=== PATIENT | female | born 1975 ===

== ENCOUNTER 2018-09-09 07:30 | Inpatient (IN) | payer OTHER ==
[2016-12-09 19:21] VITALS: BMI 30.2
[2018-09-18] MEDS ORDERED: ceFAZolin IV 1 gm in Dextrose 2 GM/100 ML BAG IVPB ONE ×2 (07:24→16:04)
[2018-09-18] MEDS ORDERED: Propofol 10 mg/ml Inj (20 ML) ONE (07:48)
[2018-09-18] MEDS ORDERED: Midazolam 2 MG/2 ML VIAL ONE (07:49)
[2018-09-18] MEDS ORDERED: Bacitracin 150,000 UNIT in Sodium Chloride 0.9% Irrig 3,000 ML IR SCH (10:00)
--- NOTE | 2018-09-18 11:13 | RAD ---
Date of service: 09/18/2018 PROCEDURE: Right Knee Radiographs. HISTORY: ALIGNMENT COMPARISON: None. FINDINGS: BONES: No acute fracture. JOINTS: Mild tricompartmental narrowing with minimal degenerative spurring. JOINT EFFUSION: None. OTHER FINDINGS: None. IMPRESSION: No demonstrated fracture or dislocation. Mild degenerative changes.
[2018-09-18] MEDS ORDERED: Neostigmine Methylsulfate 3mg/3ml Syringe IV ONE (17:55)
[2018-09-18] MEDS ORDERED: Rocuronium 10 mg/ml (5 ml) ONE (17:55)
[2018-09-18] MEDS ORDERED: Labetalol 25mg/5ml Syringe ONE (18:28)
[2018-09-18] MEDS ORDERED: EPINEPHrine 1 mg/ml (1:1000) Inj ONE (20:44)
[2018-09-18] MEDS: HYDROmorphone 0.5 mg/0.5 ml ISec IVP PRN ×6 (21:29→23:38)
[2018-09-18 21:52] LABS: HEPATITIS B SURFACE AG Negative (NEGATIVE)
[2018-09-18 21:58] LABS: HEPATITIS A IGM NEGATIVE (NEGATIVE); HEPATITIS B CORE AB NEGATIVE (NEGATIVE)
[2018-09-18 22:03] LABS: HEMOGLOBIN 10.6 g/dL (11.0-16.0); MEAN CELL VOLUME 90.9 fL (81.0-99.0); MEAN CORPUSCULAR HEMOGLOBIN 30.2 pg (27.0-31.0); MEAN CORPUSCULAR HGB CONC 33.3 g/dL (33.0-37.0); MEAN PLATELET VOLUME 7.3 fL (7.2-11.7); RBC 3.52 Mil/uL (3.80-5.20); RED CELL DISTRIBUTION WIDTH 13.4 % (11.5-14.5)
[2018-09-18 22:07] LABS: WHITE BLOOD COUNT 15.3 K/uL (4.8-10.8)
[2018-09-18 22:10] LABS: HEPATITIS C ANTIBODY NEGATIVE (NEGATIVE)
[2018-09-18] MEDS ORDERED: Iodixanol 320 mg/ml 150 ml Bottle IV ONE (22:24)
[2018-09-18 23:42] LABS: ALB/GLOB RATIO 1.2 (1.0-2.1); ALBUMIN 3.4 g/dL (3.5-5.0); ALT/SGPT 42 U/L (9-52); AST/SGOT 43 U/L (14-36); BLOOD UREA NITROGEN 5 mg/dL (7-17); CALCIUM 8.1 mg/dl (8.6-10.4); GFR NON-AFRICAN AMERICAN > 60
--- NOTE | 2018-09-18 23:55 | PCM.SURG1 ---
Surgeon's Initial Post Op Note - Surgeon's Notes Surgeon: Christopher Cintron MD Playground Director: Saji Garrison PA-C Type of Anesthesia: General Endo, Block [facility] Pre-Operative Diagnosis: R knee #1 Lateral meniscus deficiency. #2 Lateral Femoral Condyle cartilage loss. #3 ACL tear/instability. #4 New medial meniscal tear Operative Findings: R knee #1 Lateral meniscus deficiency. #2 Lateral Femoral Condyle cartilage loss (weight bearing zone crade 4 chondral loss measuring [id number]). #3 ACL tear/instability (high grade partial tear with mucinoid changes, EUA=grade 3 instability). #4 New medial meniscal tear (white-red zone horizontal tear, repairable). #5 3 compartment synovitis. #6 medial and lateral plica bands/ adhesions. #7 s/p R knee arthroscopic medial meniscal repair, partial lateral menisectomy, chondroplasty & microfracture [facility] 10/08/2017 Post-Operative Diagnosis: R knee #1 Lateral meniscus deficiency. #2 Lateral Femoral Condyle cartilage loss (weight bearing zone crade 4 chondral loss measuring [id number]). #3 ACL tear/instability (high grade partial tear with mucinoid changes, EUA=grade 3 instability). #4 New medial meniscal tear (white- red zone horizontal tear, repairable). #5 3 compartment synovitis. #6 medial and lateral plica bands/ adhesions. #7 s/p R knee arthroscopic medial meniscal repair, partial lateral menisectomy, chondroplasty & microfracture [facility] 10/08/2017 Operation Performed: R knee #1 Arthroscopic all inside medial meniscal repair. #2 Arthroscopic extensive synovectomy (3 compartment synovectomy/ resection p lica/ lysis of adhesion). #3 Arthroscopic assisted Lateral meniscus allograft transplantation. #4 Arthroscopic assisted ACL reconstructio w/ allograft Hamstring. #5 Open Osteochondral Allograft Transplantation LFC, Biological Unicondylar Resurfacing. #6 bone grafting to LM transplant and LFC osteochondral allograft. #7 Arthroscopic intra-articular PRP injection Specimen/Specimens Removed: specimen= none. complications= none. Tourniquet time= 120min at 300mmHg, then deflated for 60min, reinflated for 90min. Implants= Arthrex: tightrope button and washery boss with suture for femoral sided fixation ACL, [id number] length biocomposite delta screw for tibial sided ACL fixation, [id number] length biocomposite interference screw as stabilization backup for lateral meniscus graft, SemiT allograft x2 for ACL reconstruction, Right knee Lateral condyle fresh allograft for Bio Uni, Right knee Lateral meniscus frozen allograft for LM transplant. Linvatec/Conmed: Sequent meniscal repair system, all - inside, 10 implants for MMR, 19 implants for LM allograft fixation. Inside-Out zone specific needles, 10 used for LM fixation Estimated Blood Loss: EBL {In ML}: 100 Blood Products Given: N/A Drains Used: No Drains Post-Op Condition: Good Date of Surgery/Procedure: 09/18/18 Time of Surgery/Procedure: 19:00
[2018-09-19] MEDS ORDERED: Iohexol 240 200 ML ONE ×2 (00:08→00:59)
[2018-09-19] MEDS ORDERED: HEPARIN-NS 5,000 UNITS/500 ML 5,000 UNIT/500 ML BAG IV ONE ×3 (00:08→07:06)
[2018-09-19] MEDS ORDERED: Midazolam 2 MG/2 ML VIAL ONE ×3 (00:30→08:17)
[2018-09-19] MEDS ORDERED: Propofol 10 mg/ml Inj (20 ML) ONE ×2 (00:30→08:49)
[2018-09-19] MEDS ORDERED: ceFAZolin IV 1 gm in Dextrose 1 GM/50 ML BAG IVPB ONE ×2 (00:59→06:48)
[2018-09-19] MEDS: Albumin Human 25% (12.5 gm/50 ml) IV SCH ×2 (04:55→05:00)
--- NOTE | 2018-09-19 05:38 | CP.PCM.PN ---
Subjective - Date & Time of Evaluation Date of Evaluation: 09/18/18 Time of Evaluation: 21:30 - Subjective Subjective: 42 yof brought to [facility] after long and extensive knee surgery. Intraop recommendation was made by me that the patient would be admitted for observation due to a lengthy and complex surgery. Dr Vince Hernandez stated that he had a conversation with the patient preop and that she would rather go home post surgery. Upon arrival to [facility] patient complained of knee pain was given dilaudid. Patient also complained of right foot pain. When asked to move toes on right foot she could not move. Dr Vince Hernandez was by the bedside evaluated the patient f or foot pain, numbness, inability to move the toes. He did the doppler on right dorsalis pedis, pulse not detected. On touch foot felt colder then other one. Patient was explained that at this point block was not recommended because of the possibility of nerve and/or vascular compromise and that block can mask the symptoms and delay the diagnosis. was by the bedside and he was also explained of the same. Patient and were reassured that even though I will not do the block I will take care of patient's pain. Multiple doses of Dilaudid were given and Dilaudid CHIEF TRANSFER AND PUMPHOUSE OPERATOR was ordered immediately. Dr Vince Hernandez recommended foot to be wrapped in lindsay hugger to treat possible vasospasm. In short trial of lindsay hugger there wasn't any improvement. Repetitive dopplers were being done as well. I made multiple phone calls in short amount of time to Dr Vince Hernandez to make him aware of the patient's condition not improving and also to admit the patient for close monitoring of neurovascular function. Since time was of the essence I called Dr Servin- vascular surgeon to evaluate the patient and ordered the CT angio of the leg stat as per Dr Servin's recommendation. Dr iVnce Romeo was made aware of vascular consult and study ordered. Dr Servin arrived shortly , evaluated the patient, reviewed the CT angio and recommended emergency surgery. He talked to the about the need of emerg surgery. He called Dr Vince Hernandez via phone to inform him of the result findings and need of the emergency surgery. Around the same time that Dr Servin was called the hospitalist under who the patient was admitted Dr Hooks was called. Doppler was done again, dorsalis pedis was absent, but there was a doppler signal from right tibialis posterior, the color of the foot was not changed, but still cold. Objective - Vital Signs/Intake and Output Vital Signs (last 24 hours): Temp Pulse Resp BP Pulse Ox 985 F H 116 H 12 184/62 H 91 L 09/18/18 23:25 09/18/18 23:25 09/18/18 23:25 09/18/18 23:25 09/18/18 23:25 Intake and Output: 09/18/18 09/19/18 18:59 06:59 Intake Total 3200 4025 Balance 3200 4025 - Medications Medications: Current Medications Albumin Human (Albumin Human 25% (12.5 Gm/50 Ml)) 12.5 gm IV Q1H MOSES Stop: 09/19/18 06:00 Last Admin: 09/19/18 05:00 Dose: 12.5 gm Enoxaparin Sodium (Lovenox) 40 mg SC DAILY MOSES Hydromorphone/Sodium Chloride (Dilaudid Insurance Account Manager) 6 mg IV Q4H PRN; Protocol PRN Reason: Pain, moderate (4-7) Sodium Chloride (Sodium Chloride 0.9%) 1,000 mls @ 100 mls/hr IV .Q10H MOSES Heparin Sodium/Sodium Chloride (Heparin 33297 Units/250ml 1/2 Normal Saline) 25,000 units in 250 mls @ 12.247 mls/hr IV .[id number] PRN; Protocol PRN Reason: PROTOCOL - Labs Labs: 09/18/18 22:00 09/18/18 23:25
[2018-09-19] MEDS ORDERED: Papaverine Hydrochloride 30 mg/ml (2ml) ONE (05:42)
--- NOTE | 2018-09-19 06:44 | CP.PCM.HP ---
<Charito Nicole - Last Filed: 09/19/18 06:57> History of Present Illness - History of Present Illness History of Present Illness: CC " right foot pain" HPI: Patient is a 42 year old female with history of nephrolithiasis and ovarian cysts who presented status post right knee arthoscopic medial menisceal repair, extensive synvovectomy, arthoscopic assisted lateral meniscus allograft transplantation, arthoscopic assisted ACL reconstruction with allograft Hamstring, open osteochondral Allograft Transplantation LFC, Biological Unicondylar Resurfacing and bone grafting to LM transplant and LFC osteochondral allograft, arthroscopic intra-articular PRP injection with Dr. Baez on 09/18/18. Post-operatively while in the PACU, patient complained of pain in her right knee and right foot. Patient was given Dilaudid at that time, however continued to complain of severe right foot pain. Patient states she was unable to feel the bottom of her right foot and could not move her toes on her right foot. Emergent CT angio of leg ordered which revealed thrombus of the right popliteal artery. Vascular surgery determined patient needed emergent thrombectomy. History limited since patient had to return to OR emergently and was in severe pain. Unable to obtain ROS since patient had to return to OR. As per prior notes: PMH: nephrolithiasis and ovarian cysts PSH: right knee meniscus x2, L knee ACL x3, R knee ACL, C section Social hx: smokes 7 cigarettes daily, social etoh. denies drug use. family hx: mom had DM, [place], CABG, CVA. Dad had DM. allergies: Tylenol (hives,), Hydrocodone (hives), oxydone (hives) Home meds: none Present on Admission - Present on Admission Any Indicators Present on Admission: No Past Patient History - Infectious Disease Hx of Infectious Diseases: None - Past Medical History & Family History Past Medical History?: Yes - Past Social History Smoking Status: Smoker Currrent Status Unknown - CARDIAC Hx Cardiac Disorders: No Hx Heart Murmur: Yes (ASYMPOTOMATIC) - PULMONARY Hx Respiratory Disorders: No - NEUROLOGICAL Hx Neurological Disorder: No - HEENT Hx HEENT Problems: No - RENAL Hx Chronic Kidney Disease: No Hx Kidney Stones: Yes - ENDOCRINE/METABOLIC Hx Endocrine Disorders: No - HEMATOLOGICAL/ONCOLOGICAL Hx Blood Disorders: No Hx Blood Transfusions: No Hx Blood Transfusion Reaction: No Hx Bruising: Yes - INTEGUMENTARY Hx Dermatological Problems: No - MUSCULOSKELETAL/RHEUMATOLOGICAL Hx Musculoskeletal Disorders: Yes Hx Falls: No Other/Comment: Right and Left Meiscal tear. - GASTROINTESTINAL Hx Gastrointestinal Disorders: No - GENITOURINARY/GYNECOLOGICAL Hx Genitourinary Disorders: Yes Hx Hematuria: Yes Hx Urinary Tract Infection: Yes Other/Comment: Ovarian cyst - PSYCHIATRIC Hx Psychophysiologic Disorder: Yes Hx Anxiety: Yes Hx Depression: Yes Hx Substance Use: No - SURGICAL HISTORY Hx Surgeries: Yes Hx Arthroscopy: Yes (2 RIGHT KNEE 3 LEFT KNEE) Hx Section: Yes Hx Herniorrhaphy: Yes (ABD) Other/Comment: Ovarian cystectomy, Repair right and left knee meniscal tear. - ANESTHESIA Hx Anesthesia: Yes Hx Anesthesia Reactions: No Hx Malignant Hyperthermia: No Has any member of the family had a problem w/ anesthesia?: No Meds Allergies/Adverse Reactions: Allergies Allergy/AdvReac Type Severity Reaction Status Date / Time hydrocodone bitartrate Allergy RASH Verified 12/09/16 19:30 [From Vicodin] oxycodone HCl [From Percocet] Allergy RASH Verified 12/09/16 19:30 Physical Exam - Constitutional Appears: In Acute Distress - Head Exam Head Exam: ATRAUMATIC, NORMOCEPHALIC - Eye Exam Eye Exam: EOMI - ENT Exam ENT Exam: Mucous Membranes Moist - Neck Exam Neck exam: Positive for: Full Rom. Negative for: Tenderness - Respiratory Exam Respiratory Exam: NORMAL BREATHING PATTERN - Cardiovascular Exam Cardiovascular Exam: REGULAR RHYTHM, +S1, +S2 - GI/Abdominal Exam GI & Abdominal Exam: Normal Bowel Sounds, Soft. absent: Distended, Firm, Guarding, Hernia, Tenderness - Extremities Exam Additional comments: Right lower extremity immobilized after extensive knee surgery Right foot: Cold to touch. Unable to palpate DP pulse. PT pulse present with doppler. Unable to move right toes. Decreased sensation of right foot. Tenderness of distal right foot. Left foot: Strong DP pulse. Warm to touch. Able to move toes without issues. Sensation intact of left foot. Nontender. - Neurological Exam Neurological exam: Alert, Oriented x3 Results - Vital Signs Recent Vital Signs: Last Vital Signs Temp 985 F H 09/18/18 23:25 Pulse 116 H 09/18/18 23:25 Resp 12 09/18/18 23:25 BP 184/62 H 09/18/18 23:25 Pulse Ox 91 L 09/18/18 23:25 - Labs Result Diagrams: 09/18/18 22:00 09/18/18 23:25 Labs: Laboratory Results - last 24 hr 09/18/18 09/18/18 09/18/18 13:32 15:49 18:48 WBC RBC Hgb Hct MCV MCH MCHC RDW Plt Count MPV Sodium Potassium Chloride Carbon Dioxide Anion Gap BUN Creatinine Est GFR ( Amer) Est GFR (Non-Af Amer) POC Glucose (mg/dL) 107 99 145 H Random Glucose Lactic Acid Calcium Total Bilirubin AST ALT Alkaline Phosphatase Total Protein Albumin Globulin Albumin/Globulin Ratio RPR Hepatitis A IgM Ab Hep Bs Antigen Hep Bs Antibody Hep B Core IgM Ab Hepatitis C Antibody Blood Type Blood Type Confirm Antibody Screen 09/18/18 09/18/18 09/18/18 21:02 21:02 21:02 WBC RBC Hgb Hct MCV MCH MCHC RDW Plt Count MPV Sodium Potassium Chloride Carbon Dioxide Anion Gap BUN Creatinine Est GFR ( Amer) Est GFR (Non-Af Amer) POC Glucose (mg/dL) Random Glucose Lactic Acid Calcium Total Bilirubin AST ALT Alkaline Phosphatase Total Protein Albumin Globulin Albumin/Globulin Ratio RPR Nonreactive Hepatitis A IgM Ab Negative Hep Bs Antigen Negative Hep Bs Antibody Negative Hep B Core IgM Ab Negative Hepatitis C Antibody Negative Blood Type Blood Type Confirm Antibody Screen 09/18/18 09/18/18 09/18/18 22:00 23:25 23:44 WBC 15.3 H D RBC 3.52 L Hgb 10.6 L D Hct 32.0 L MCV 90.9 D MCH 30.2 MCHC 33.3 RDW 13.4 Plt Count 408 H MPV 7.3 Sodium 132 Potassium 4.0 Chloride 100 Carbon Dioxide 22 Anion Gap 15 BUN 5 L Creatinine 0.6 L Est GFR ( Amer) > 60 Est GFR (Non-Af Amer) > 60 POC Glucose (mg/dL) Random Glucose 185 H Lactic Acid 1.8 Calcium 8.1 L Total Bilirubin 1.3 AST 43 H ALT 42 Alkaline Phosphatase 70 Total Protein 6.3 Albumin 3.4 L Globulin 2.8 Albumin/Globulin Ratio 1.2 RPR Hepatitis A IgM Ab Hep Bs Antigen Hep Bs Antibody Hep B Core IgM Ab Hepatitis C Antibody Blood Type Blood Type Confirm Antibody Screen 09/19/18 09/19/18 09/19/18 00:23 02:49 04:06 WBC RBC Hgb Hct MCV MCH MCHC RDW Plt Count MPV Sodium Potassium Chloride Carbon Dioxide Anion Gap BUN Creatinine Est GFR ( Amer) Est GFR (Non-Af Amer) POC Glucose (mg/dL) 168 H Random Glucose Lactic Acid Calcium Total Bilirubin AST ALT Alkaline Phosphatase Total Protein Albumin Globulin Albumin/Globulin Ratio RPR Hepatitis A IgM Ab Hep Bs Antigen Hep Bs Antibody Hep B Core IgM Ab Hepatitis C Antibody Blood Type A POSITIVE Blood Type Confirm A POSITIVE Antibody Screen Negative Assessment & Plan - Assessment and Plan (Free Text) Plan: Assessment 42 year old female with history of nephrolithiasis and ovarian cysts who presented for right knee menisceal and ACL surgery with Dr. Baez. Post- operatively, patient developed severe right foot pain with decreased sensation, lack of pulse, and inability to move toes. Plan Severe foot pain, status post right knee surgery Right popliteal artery thrombus, with thrombectomy Ortho Dr. Baez on case Vascular Dr. Servin consulted after patient complained of severe pain in right foot, with lack of pulse, decreased sensation and inability to move toes CT angio ordered which revealed thrombus of right popliteal artery. Patient was taken back to OR for emergency thrombectomy with Dr. Servin f/u CBC, CMP, CPK, lactate Case discussed with Dr. Neva Nicole, PGY1 <Phong Hooks P - Last Filed: 09/20/18 06:50> Results - Vital Signs Recent Vital Signs: Last Vital Signs Temp 99.8 F H 09/20/18 04:00 Pulse 118 H 09/20/18 06:03 Resp 20 09/20/18 06:03 BP 138/67 09/20/18 06:03 Pulse Ox 99 09/20/18 06:03 - Labs Result Diagrams: 09/20/18 06:28 09/19/18 18:37 Labs: Laboratory Results - last 24 hr 09/19/18 09/19/18 09/19/18 00:23 07:58 09:51 WBC RBC Hgb Hct MCV MCH MCHC RDW Plt Count MPV Neut % (Auto) Lymph % (Auto) Mobile % (Auto) Eos % (Auto) Baso % (Auto) Neut # (Auto) Lymph # (Auto) Mobile # (Auto) Eos # (Auto) Baso # (Auto) PT INR APTT Puncture Site Lr pCO2 33 L pO2 131 H HCO3 23.2 ABG pH 7.42 ABG Total CO2 22.4 ABG O2 Saturation 99.4 H ABG Base Excess -2.3 L Tavo Test Pos ABG Potassium 3.5 L A-a O2 Difference 184.0 Respiratory Index 1.4 Sodium 137.0 Chloride 112.0 H Glucose 211 H Lactate 2.3 H Vent Mode A/c pc Mechanical Rate 18 FiO2 50.0 PEEP 5 Potassium Carbon Dioxide Anion Gap BUN Creatinine Est GFR ( Amer) Est GFR (Non-Af Amer) POC Glucose (mg/dL) Random Glucose Lactic Acid Calcium Phosphorus Magnesium Total Bilirubin AST ALT Alkaline Phosphatase Total Creatine Kinase CK-MB (Mass) Troponin I Total Protein Albumin Globulin Albumin/Globulin Ratio Arterial Blood Potassium 3.5 L Urine Color Urine Clarity Urine pH Ur Specific [place] Urine Protein Urine Glucose (UA) Urine Ketones Urine Blood Urine Nitrate Urine Bilirubin Urine Urobilinogen Ur Leukocyte Esterase Urine WBC (Auto) Urine RBC (Auto) Ur Squamous Epith Cells Urine Opiates Screen Urine Methadone Screen Ur Barbiturates Screen Ur Phencyclidine Scrn Ur Amphetamines Screen U Benzodiazepines Scrn U Oth Cocaine Metabols U Cannabinoids Screen HIV 1&2 Antibody Screen Negative Blood Type A POSITIVE Antibody Screen Negative 09/19/18 09/19/18 09/19/18 11:48 13:11 13:11 WBC RBC Hgb Hct MCV MCH MCHC RDW Plt Count MPV Neut % (Auto) Lymph % (Auto) Mobile % (Auto) Eos % (Auto) Baso % (Auto) Neut # (Auto) Lymph # (Auto) Mobile # (Auto) Eos # (Auto) Baso # (Auto) PT 15.2 H INR 1.4 APTT 29 Puncture Site pCO2 pO2 HCO3 ABG pH ABG Total CO2 ABG O2 Saturation ABG Base Excess Tavo Test ABG Potassium A-a O2 Difference Respiratory Index Sodium 136 Chloride 107 Glucose Lactate Vent Mode Mechanical Rate FiO2 PEEP Potassium 3.8 Carbon Dioxide 25 Anion Gap 8 L BUN 3 L Creatinine 0.6 L Est GFR ( Amer) > 60 Est GFR (Non-Af Amer) > 60 POC Glucose (mg/dL) 228 H Random Glucose 200 H Lactic Acid Calcium 6.9 L Phosphorus Magnesium Total Bilirubin 1.5 H AST 76 H D ALT 42 Alkaline Phosphatase 33 L D Total Creatine Kinase 5086 H CK-MB (Mass) 34.2 H Troponin I < 0.0120 Total Protein 4.0 L Albumin 2.2 L D Globulin 1.9 L Albumin/Globulin Ratio 1.2 Arterial Blood Potassium Urine Color Urine Clarity Urine pH Ur Specific [place] Urine Protein Urine Glucose (UA) Urine Ketones Urine Blood Urine Nitrate Urine Bilirubin Urine Urobilinogen Ur Leukocyte Esterase Urine WBC (Auto) Urine RBC (Auto) Ur Squamous Epith Cells Urine Opiates Screen Urine Methadone Screen Ur Barbiturates Screen Ur Phencyclidine Scrn Ur Amphetamines Screen U Benzodiazepines Scrn U Oth Cocaine Metabols U Cannabinoids Screen HIV 1&2 Antibody Screen Blood Type Antibody Screen 09/19/18 09/19/18 09/19/18 14:00 14:12 16:07 WBC RBC Hgb Hct MCV MCH MCHC RDW Plt Count MPV Neut % (Auto) Lymph % (Auto) Mobile % (Auto) Eos % (Auto) Baso % (Auto) Neut # (Auto) Lymph # (Auto) Mobile # (Auto) Eos # (Auto) Baso # (Auto) PT INR APTT Puncture Site pCO2 pO2 HCO3 ABG pH ABG Total CO2 ABG O2 Saturation ABG Base Excess Tavo Test ABG Potassium A-a O2 Difference Respiratory Index Sodium Chloride Glucose Lactate Vent Mode Mechanical Rate FiO2 PEEP Potassium Carbon Dioxide Anion Gap BUN Creatinine Est GFR ( Amer) Est GFR (Non-Af Amer) POC Glucose (mg/dL) 201 H Random Glucose Lactic Acid 2.0 Calcium Phosphorus Magnesium Total Bilirubin AST ALT Alkaline Phosphatase Total Creatine Kinase CK-MB (Mass) Troponin I Total Protein Albumin Globulin Albumin/Globulin Ratio Arterial Blood Potassium Urine Color Urine Clarity Urine pH Ur Specific [place] Urine Protein Urine Glucose (UA) Urine Ketones Urine Blood Urine Nitrate Urine Bilirubin Urine Urobilinogen Ur Leukocyte Esterase Urine WBC (Auto) Urine RBC (Auto) Ur Squamous Epith Cells Urine Opiates Screen Positive H Urine Methadone Screen Negative Ur Barbiturates Screen Negative Ur Phencyclidine Scrn Negative Ur Amphetamines Screen Negative U Benzodiazepines Scrn Positive U Oth Cocaine Metabols Negative U Cannabinoids Screen Positive H HIV 1&2 Antibody Screen Blood Type Antibody Screen 09/19/18 09/19/18 09/19/18 17:20 18:20 18:35 WBC RBC Hgb Hct MCV MCH MCHC RDW Plt Count MPV Neut % (Auto) Lymph % (Auto) Mobile % (Auto) Eos % (Auto) Baso % (Auto) Neut # (Auto) Lymph # (Auto) Mobile # (Auto) Eos # (Auto) Baso # (Auto) PT 14.7 H INR 1.3 APTT 39 H D Puncture Site pCO2 pO2 HCO3 ABG pH ABG Total CO2 ABG O2 Saturation ABG Base Excess Tavo Test ABG Potassium A-a O2 Difference Respiratory Index Sodium Chloride Glucose Lactate Vent Mode Mechanical Rate FiO2 PEEP Potassium Carbon Dioxide Anion Gap BUN Creatinine Est GFR ( Amer) Est GFR (Non-Af Amer) POC Glucose (mg/dL) Random Glucose Lactic Acid 1.3 Calcium Phosphorus Magnesium Total Bilirubin AST ALT Alkaline Phosphatase Total Creatine Kinase CK-MB (Mass) Troponin I Total Protein Albumin Globulin Albumin/Globulin Ratio Arterial Blood Potassium Urine Color [place] Urine Clarity Clear Urine pH 5.0 Ur Specific [place] 1.038 H Urine Protein Negative Urine Glucose (UA) 3+ H Urine Ketones Trace Urine Blood 1+ H Urine Nitrate Negative Urine Bilirubin Negative Urine Urobilinogen 2.0 H Ur Leukocyte Esterase Neg Urine WBC (Auto) 2 Urine RBC (Auto) 4 H Ur Squamous Epith Cells < 1 Urine Opiates Screen Urine Methadone Screen Ur Barbiturates Screen Ur Phencyclidine Scrn Ur Amphetamines Screen U Benzodiazepines Scrn U Oth Cocaine Metabols U Cannabinoids Screen HIV 1&2 Antibody Screen Blood Type Antibody Screen 09/19/18 09/19/18 09/19/18 18:35 18:37 19:55 WBC 10.8 RBC 2.92 L Hgb 8.9 L Hct 25.6 L MCV 87.9 MCH 30.3 MCHC 34.5 RDW 15.5 H Plt Count 150 MPV 7.8 Neut % (Auto) 68.1 Lymph % (Auto) 20.1 Mobile % (Auto) 11.5 H Eos % (Auto) 0.0 Baso % (Auto) 0.3 Neut # (Auto) 7.3 H Lymph # (Auto) 2.2 Mobile # (Auto) 1.2 H Eos # (Auto) 0.0 Baso # (Auto) 0.0 PT INR APTT Puncture Site pCO2 pO2 HCO3 ABG pH ABG Total CO2 ABG O2 Saturation ABG Base Excess Tavo Test ABG Potassium A-a O2 Difference Respiratory Index Sodium 136 Chloride 107 Glucose Lactate Vent Mode Mechanical Rate FiO2 PEEP Potassium 3.5 L Carbon Dioxide 25 Anion Gap 7 L BUN 3 L Creatinine 0.6 L Est GFR ( Amer) > 60 Est GFR (Non-Af Amer) > 60 POC Glucose (mg/dL) 171 H Random Glucose 175 H Lactic Acid Calcium 7.0 L Phosphorus 1.7 L Magnesium 1.7 Total Bilirubin 1.3 AST 85 H ALT 46 Alkaline Phosphatase 34 L Total Creatine Kinase CK-MB (Mass) 24.5 H Troponin I Total Protein 3.9 L Albumin 2.1 L Globulin 1.9 L Albumin/Globulin Ratio 1.1 Arterial Blood Potassium Urine Color Urine Clarity Urine pH Ur Specific [place] Urine Protein Urine Glucose (UA) Urine Ketones Urine Blood Urine Nitrate Urine Bilirubin Urine Urobilinogen Ur Leukocyte Esterase Urine WBC (Auto) Urine RBC (Auto) Ur Squamous Epith Cells Urine Opiates Screen Urine Methadone Screen Ur Barbiturates Screen Ur Phencyclidine Scrn Ur Amphetamines Screen U Benzodiazepines Scrn U Oth Cocaine Metabols U Cannabinoids Screen HIV 1&2 Antibody Screen Blood Type Antibody Screen 09/20/18 09/20/18 09/20/18 00:07 01:43 EST 02:59 WBC RBC Hgb Hct MCV MCH MCHC RDW Plt Count MPV Neut % (Auto) Lymph % (Auto) Mobile % (Auto) Eos % (Auto) Baso % (Auto) Neut # (Auto) Lymph # (Auto) [place] # (Auto) Eos # (Auto) Baso # (Auto) PT INR APTT 130 H* D Puncture Site pCO2 pO2 HCO3 ABG pH ABG Total CO2 ABG O2 Saturation ABG Base Excess Tavo Test ABG Potassium A-a O2 Difference Respiratory Index Sodium Chloride Glucose Lactate Vent Mode Mechanical Rate FiO2 PEEP Potassium Carbon Dioxide Anion Gap BUN Creatinine Est GFR ( Amer) Est GFR (Non-Af Amer) POC Glucose (mg/dL) 128 H Random Glucose Lactic Acid Calcium Phosphorus Magnesium Total Bilirubin AST ALT Alkaline Phosphatase Total Creatine Kinase 5736 H CK-MB (Mass) 18.3 H Troponin I < 0.0120 Total Protein Albumin Globulin Albumin/Globulin Ratio Arterial Blood Potassium Urine Color Urine Clarity Urine pH Ur Specific [place] Urine Protein Urine Glucose (UA) Urine Ketones Urine Blood Urine Nitrate Urine Bilirubin Urine Urobilinogen Ur Leukocyte Esterase Urine WBC (Auto) Urine RBC (Auto) Ur Squamous Epith Cells Urine Opiates Screen Urine Methadone Screen Ur Barbiturates Screen Ur Phencyclidine Scrn Ur Amphetamines Screen U Benzodiazepines Scrn U Oth Cocaine Metabols U Cannabinoids Screen HIV 1&2 Antibody Screen Blood Type Antibody Screen 09/20/18 09/20/18 09/20/18 05:29 05:45 06:28 WBC 9.6 RBC 2.71 L Hgb 8.5 L Hct 24.3 L MCV 89.7 MCH 31.6 H MCHC 35.2 RDW 16.0 H Plt Count 126 L D MPV 8.3 Neut % (Auto) 61.7 Lymph % (Auto) 26.5 Mobile % (Auto) 11.2 H Eos % (Auto) 0.2 Baso % (Auto) 0.4 Neut # (Auto) 5.9 Lymph # (Auto) 2.6 Mobile # (Auto) 1.1 H Eos # (Auto) 0.0 Baso # (Auto) 0.0 PT INR APTT Puncture Site Rb pCO2 50 H pO2 86 HCO3 29.4 H ABG pH 7.41 ABG Total CO2 33.2 H ABG O2 Saturation 98.8 H ABG Base Excess 5.8 H Tavo Test Na ABG Potassium 3.0 L A-a O2 Difference 101.0 Respiratory Index 1.2 Sodium 140.0 Chloride 108.0 H Glucose 159 H Lactate 1.2 Vent Mode A/c pc Mechanical Rate 20 FiO2 35.0 PEEP 5 Potassium Carbon Dioxide Anion Gap BUN Creatinine Est GFR ( Amer) Est GFR (Non-Af Amer) POC Glucose (mg/dL) 162 H Random Glucose Lactic Acid Calcium Phosphorus Magnesium Total Bilirubin AST ALT Alkaline Phosphatase Total Creatine Kinase CK-MB (Mass) Troponin I Total Protein Albumin Globulin Albumin/Globulin Ratio Arterial Blood Potassium 3.0 L Urine Color Urine Clarity Urine pH Ur Specific [place] Urine Protein Urine Glucose (UA) Urine Ketones Urine Blood Urine Nitrate Urine Bilirubin Urine Urobilinogen Ur Leukocyte Esterase Urine WBC (Auto) Urine RBC (Auto) Ur Squamous Epith Cells Urine Opiates Screen Urine Methadone Screen Ur Barbiturates Screen Ur Phencyclidine Scrn Ur Amphetamines Screen U Benzodiazepines Scrn U Oth Cocaine Metabols U Cannabinoids Screen HIV 1&2 Antibody Screen Blood Type Antibody Screen Attending/Attestation - Attestation I have personally seen and examined this patient.: Yes I have fully participated in the care of the patient.: Yes I have reviewed all pertinent clinical information: Yes Notes (Text): Patient was still in OR when care was transferred to the next team, and was being transferred to ICU post op.
[2018-09-19 06:51] LABS: BASO % 0.3 % (0.0-2.0); HEMOGLOBIN 10.4 g/dL (11.0-16.0); LYMPH # 1.7 K/uL (1.0-4.3); LYMPH % 13.7 % (20.0-40.0); MEAN CELL VOLUME 87.6 fL (81.0-99.0); MEAN CORPUSCULAR HEMOGLOBIN 29.9 pg (27.0-31.0); MEAN CORPUSCULAR HGB CONC 34.1 g/dL (33.0-37.0); MEAN PLATELET VOLUME 7.6 fL (7.2-11.7); MONO % 7.9 % (0.0-10.0); NEUT # 9.6 K/uL (1.8-7.0); NEUT % 78.1 % (50.0-75.0); RBC 3.49 Mil/uL (3.80-5.20); WHITE BLOOD COUNT 12.3 K/uL (4.8-10.8)
[2018-09-19] MEDS: Sodium Chloride 0.9% 1,000 ML IV SCH ×2 (08:05→09:14)
--- NOTE | 2018-09-19 08:15 | CON ---
DATE: 09/18/[address] Cintron. TIME: 11:15 p.m. HISTORY OF PRESENT ILLNESS: The patient is a 42-year-old woman, seen on an urgent basis at the request of Dr. Cintron because of concerns regarding the circulation to her foot. The patient underwent a lengthy orthopedic procedure with reconstruction of portions of the knee today. I was asked to see the patient because in the recovery room, the anesthesiologist noted that there was no longer palpable pulse but the patient had severe pain in the foot, and that they were unable to obtain Doppler signals. I responded immediately requesting that the patient be started on anticoagulation and secondly that the CT angiogram be done. PAST MEDICAL HISTORY: The patient's past history includes a history of cigarette smoking. No history of diabetes or hypertension. No history of coronary problems. We do not know her last menstrual period. The patient was seen in the recovery room and was unable to give a lot of the details. Most of the details were obtained from her . Basically, he says she is in good health except for the fact that she smokes. FAMILY HISTORY: Noncontributory. SOCIAL HISTORY: Noncontributory except for the smoking. PHYSICAL EXAMINATION: GENERAL: Reveals her to be in distress. EXTREMITIES: She has severe pain in the foot. She cannot dorsiflex or move the toes at all. The foot itself is somewhat cooler than the other side. Does have pulse oximetry tracings which are very diminished and Doppler signals which were allover the posterior tibial but not over the dorsalis pedis. On the other side, the left leg is normal. With good range of motion, no pulse deficit, and easily palpable pulses. The CT angiogram was done and it showed cut off in the popliteal artery on the right side. Below this, the tibial vessels were reconstituted and were visible on the CTA. ASSESSMENT: My impression is that the patient has an acute thrombosis of the right popliteal artery and will require emergency surgery. The other options including thrombolytic therapy were discussed but because of the time relationship to emergency to her recent surgery, I felt that this may be riskier than the direct surgical approach. This was reviewed and discussed with the patient's and with her. They have agreed to the procedure. They are all aware of this. I also reviewed this with Dr. Dr. Cintron regarding the findings and my recommendations. The patient will undergo emergency surgical intervention. Arsh Servin Jr., MD
[2018-09-19] MEDS: Dextrose 5%/0.9% NS 1,000 ML IV SCH ×2 (08:30→17:56)
--- NOTE | 2018-09-19 08:32 | PCM.SURG1 ---
Surgeon's Initial Post Op Note - Surgeon's Notes Surgeon: Dr. Servin Quality Assurance Intern: Dr. Jenkins Type of Anesthesia: General Endo Anesthesia Administered By: Dr. Henao Pre-Operative Diagnosis: Loss of pulses in Right foot Operative Findings: See operative report Post-Operative Diagnosis: Occlusion of below knee popliteal artery Operation Performed: 1) R Common Femoral artery cut down with attempted ludwin balloon thrombectomy & patch angioplasty of common femoral artery. 2) tPA infusion via SFA/popliteal artery cutdown. 3) Above knee popliteal-PT bypass with saphenous vein harvest from L leg. 4) Balloon angioplasty of bypass graft. 5) Anterior compartement fasciotomy Specimen/Specimens Removed: none Estimated Blood Loss: EBL {In ML}: 1,500 Blood Products Given: PRBC (4 units) Drains Used: No Drains Post-Op Condition: Good Date of Surgery/Procedure: 09/19/18 Time of Surgery/Procedure: 08:33
[2018-09-19] MEDS ORDERED: Dextrose 5%/0.9% NS 1,000 ML IV SCH (08:45)
--- NOTE | 2018-09-19 09:04 | RAD ---
Date of service: 09/19/2018 HISTORY: post or et tube COMPARISON: Chest radiograph 04/08/2013. FINDINGS: LUNGS: Endotracheal tube is placed with tip terminating 3 cm of the aguilar. No infiltrate identified bilaterally. PLEURA: No significant pleural effusion identified, no pneumothorax apparent. CARDIOVASCULAR: No aortic atherosclerotic calcification present. Normal cardiac size. No pulmonary vascular congestion. OSSEOUS STRUCTURES: No significant abnormalities. VISUALIZED UPPER ABDOMEN: Mild right hemidiaphragm elevation reiterated. OTHER FINDINGS: None. IMPRESSION: ET tube in satisfactory position as discussed above. No acute infiltrate pleural effusion or pulmonary vascular congestion. Mild right hemidiaphragm elevation reiterated.
[2018-09-19] MEDS: Midazolam 50 mg/10 ml 100 MG in Sodium Chloride 0.9% 80 ML IV SCH (09:30)
[2018-09-19 09:54] LABS: ABG ALLEN TEST POS; ARTERIAL BLOOD GAS HCO3 23.2 mmol/L (21-28); ARTERIAL BLOOD GAS O2 SAT 99.4 % (95-98); ARTERIAL BLOOD GAS PCO2 33 mm/Hg (35-45); ARTERIAL BLOOD GAS PH 7.42 (7.35-7.45); ARTERIAL BLOOD GAS PO2 131 mm/Hg (80-100); ARTERIAL BLOOD GAS TCO2 22.4 mmol/L (22-28)
[2018-09-19] MEDS ORDERED: Enoxaparin 40 mg Syringe SC SCH ×2 (10:00)
[2018-09-19] MEDS ORDERED: Metoprolol 1 mg/ml Inj IVP PRN (12:00)
[2018-09-19] MEDS: (Novolog) Insulin Aspart, Recombinant 100 u/ml 10 ml vial SC SCH ×4 (12:02→21:06)
--- NOTE | 2018-09-19 12:31 | CP.PCM.CON ---
History of Present Illness - History of Present Illness History of Present Illness: Intubated post op: long OR time HPI: 42 year old female with pmx of nephrolithiasis and ovarian cysts who s/p right knee arthoscopic medial menisceal repair, extensive synvovectomy, arthoscopic assisted lateral meniscus allograft transplantation, arthoscopic assisted ACL reconstruction with allograft Hamstring, open osteochondral All ograft Transplantation LFC, Biological Unicondylar Resurfacing and bone grafting to LM transplant and LFC osteochondral allograft, arthroscopic intra-articular PRP injection with Dr. Baez on 09/18/18. Post-operatively while in the PACU, patient complained of pain in her right knee and right foot. Vascular surgery determined patient needed emergent thrombectomy. History limited since patient had to return to OR emergently and was in severe pain. ROS not available 2nd intubation PMH: nephrolithiasis and ovarian cysts PSH: right knee meniscus x2, L knee ACL x3, R knee ACL, C section Social hx: social etoh. denies drug use. vanessa Garcia long history of smoking 2packs/day family hx: mom had DM, NC, CABG, CVA. Dad had DM. allergies: Tylenol (hives,), Hydrocodone (hives), oxydone (hives) Home meds: none Review of Systems - Review of Systems Systems not reviewed;Unavailable: Intubated Past Patient History - Infectious Disease Hx of Infectious Diseases: None - Past Medical History & Family History Past Medical History?: Yes - Past Social History Smoking Status: Current Some Days Smoker - CARDIAC Hx Cardiac Disorders: No Hx Heart Murmur: Yes (ASYMPOTOMATIC) - PULMONARY Hx Respiratory Disorders: No Hx Asthma: Yes - NEUROLOGICAL Hx Neurological Disorder: No - HEENT Hx HEENT Problems: No - RENAL Hx Chronic Kidney Disease: No Hx Kidney Stones: Yes - ENDOCRINE/METABOLIC Hx Endocrine Disorders: No - HEMATOLOGICAL/ONCOLOGICAL Hx Blood Disorders: No Hx Blood Transfusions: No Hx Blood Transfusion Reaction: No Hx Bruising: Yes - INTEGUMENTARY Hx Dermatological Problems: No - MUSCULOSKELETAL/RHEUMATOLOGICAL Hx Falls: Yes (2 YEARS AGO) - GASTROINTESTINAL Hx Gastrointestinal Disorders: No - GENITOURINARY/GYNECOLOGICAL Hx Genitourinary Disorders: Yes Hx Hematuria: Yes Hx Urinary Tract Infection: Yes Other/Comment: Ovarian cyst - PSYCHIATRIC Hx Psychophysiologic Disorder: Yes Hx Anxiety: Yes Hx Depression: Yes Hx Substance Use: No - SURGICAL HISTORY Hx Surgeries: Yes Hx Arthroscopy: Yes (2 RIGHT KNEE 3 LEFT KNEE) Hx Section: Yes Hx Herniorrhaphy: Yes (ABD) Other/Comment: Ovarian cystectomy, Repair right and left knee meniscal tear. 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) 6 mg IV Q4H PRN; Protocol PRN Reason: Pain, moderate (4-7) Heparin Sodium/Sodium Chloride (Heparin 74820 Units/250ml 1/2 Normal Saline) 25,000 units in 250 mls @ 12.247 mls/hr IV .[id number] PRN; Protocol PRN Reason: PROTOCOL Midazolam HCl 100 mg/ Sodium (Chloride) 100 mls @ 1.36 mls/hr IV .Q24H MOSES; Protocol Last Admin: 09/19/18 09:30 Dose: 0.02 mg/kg/hr, 1.36 mls/hr Fentanyl Citrate 2,500 mcg/ (Sodium Chloride) 250 mls @ 13.61 mls/hr IV .[id number] MOSES; Protocol Last Admin: 09/19/18 09:32 Dose: 2 mcg/kg/hr, 13.61 mls/hr Dextrose/Sodium Chloride (Dextrose 5%/0.9% Ns 1000 Ml) 1,000 mls @ 125 mls/hr IV .Q8H MOSES Last Admin: 09/19/18 08:30 Dose: 125 mls/hr Milrinone Lactate/Dextrose 20 (mg/ Dextrose) 100 mls @ 4.08 mls/hr IV .Q24H MOSES Insulin Aspart (Novolog) 0 unit SC Q4H MOSES; Protocol Last Admin: 09/19/18 12:02 Dose: Not Given Metoprolol Tartrate (Lopressor) 5 mg IVP Q6H PRN PRN Reason: Heart rate Last Admin: 09/19/18 12:01 Dose: 5 mg Physical Exam - Head Exam Head Exam: ATRAUMATIC, NORMAL INSPECTION - Eye Exam Eye Exam: EOMI - ENT Exam ENT Exam: Mucous Membranes Moist - Respiratory Exam Respiratory Exam: Clear to Auscultation Bilateral, Rales, NORMAL BREATHING PATTERN - Cardiovascular Exam Cardiovascular Exam: Tachycardia, +S1, +S2 - GI/Abdominal Exam GI & Abdominal Exam: Normal Bowel Sounds, Soft. absent: Rebound, Rigid, Tenderness - Extremities Exam Additional comments: pulses 1+ PT/DP left and PT right - Neurological Exam Neurological exam: Altered Results - Vital Signs Recent Vital Signs: Last Vital Signs Temp 98.4 F 09/19/18 08:30 Pulse 145 H 09/19/18 08:30 Resp 20 09/19/18 08:30 BP 142/92 H 09/19/18 08:30 Pulse Ox 91 L 09/18/18 23:25 - Labs Result Diagrams: 09/19/18 06:30 09/19/18 13:11 Labs: Laboratory Results - last 24 hr 09/18/18 09/18/18 09/18/18 13:32 15:49 18:48 WBC RBC Hgb Hct MCV MCH MCHC RDW Plt Count MPV Neut % (Auto) Lymph % (Auto) [place] % (Auto) Eos % (Auto) Baso % (Auto) Neut # (Auto) Lymph # (Auto) [place] # (Auto) Eos # (Auto) Baso # (Auto) Puncture Site pCO2 pO2 HCO3 ABG pH ABG Total CO2 ABG O2 Saturation ABG Base Excess Tavo Test ABG Potassium A-a O2 Difference Respiratory Index Glucose Lactate Vent Mode Mechanical Rate FiO2 PEEP Sodium Potassium Chloride Carbon Dioxide Anion Gap BUN Creatinine Est GFR ( Amer) Est GFR (Non-Af Amer) POC Glucose (mg/dL) 107 99 145 H Random Glucose Lactic Acid Calcium Total Bilirubin AST ALT Alkaline Phosphatase Total Protein Albumin Globulin Albumin/Globulin Ratio Arterial Blood Potassium RPR Hepatitis A IgM Ab Hep Bs Antigen Hep Bs Antibody Hep B Core IgM Ab Hepatitis C Antibody HIV 1&2 Antibody Screen Blood Type Blood Type Confirm Antibody Screen 09/18/18 09/18/18 09/18/18 21:02 21:02 21:02 WBC RBC Hgb Hct MCV MCH MCHC RDW Plt Count MPV Neut % (Auto) Lymph % (Auto) [place] % (Auto) Eos % (Auto) Baso % (Auto) Neut # (Auto) Lymph # (Auto) [place] # (Auto) Eos # (Auto) Baso # (Auto) Puncture Site pCO2 pO2 HCO3 ABG pH ABG Total CO2 ABG O2 Saturation ABG Base Excess Tavo Test ABG Potassium A-a O2 Difference Respiratory Index Glucose Lactate Vent Mode Mechanical Rate FiO2 PEEP Sodium Potassium Chloride Carbon Dioxide Anion Gap BUN Creatinine Est GFR ( Amer) Est GFR (Non-Af Amer) POC Glucose (mg/dL) Random Glucose Lactic Acid Calcium Total Bilirubin AST ALT Alkaline Phosphatase Total Protein Albumin Globulin Albumin/Globulin Ratio Arterial Blood Potassium RPR Nonreactive Hepatitis A IgM Ab Negative Hep Bs Antigen Negative Hep Bs Antibody Negative Hep B Core IgM Ab Negative Hepatitis C Antibody Negative HIV 1&2 Antibody Screen Blood Type Blood Type Confirm Antibody Screen 09/18/18 09/18/18 09/18/18 22:00 23:25 23:44 WBC 15.3 H D RBC 3.52 L Hgb 10.6 L D Hct 32.0 L MCV 90.9 D MCH 30.2 MCHC 33.3 RDW 13.4 Plt Count 408 H MPV 7.3 Neut % (Auto) Lymph % (Auto) [place] % (Auto) Eos % (Auto) Baso % (Auto) Neut # (Auto) Lymph # (Auto) [place] # (Auto) Eos # (Auto) Baso # (Auto) Puncture Site pCO2 pO2 HCO3 ABG pH ABG Total CO2 ABG O2 Saturation ABG Base Excess Tvao Test ABG Potassium A-a O2 Difference Respiratory Index Glucose Lactate Vent Mode Mechanical Rate FiO2 PEEP Sodium 132 Potassium 4.0 Chloride 100 Carbon Dioxide 22 Anion Gap 15 BUN 5 L Creatinine 0.6 L Est GFR ( Amer) > 60 Est GFR (Non-Af Amer) > 60 POC Glucose (mg/dL) Random Glucose 185 H Lactic Acid 1.8 Calcium 8.1 L Total Bilirubin 1.3 AST 43 H ALT 42 Alkaline Phosphatase 70 Total Protein 6.3 Albumin 3.4 L Globulin 2.8 Albumin/Globulin Ratio 1.2 Arterial Blood Potassium RPR Hepatitis A IgM Ab Hep Bs Antigen Hep Bs Antibody Hep B Core IgM Ab Hepatitis C Antibody HIV 1&2 Antibody Screen Blood Type Blood Type Confirm Antibody Screen 09/19/18 09/19/18 09/19/18 00:23 02:49 04:06 WBC RBC Hgb Hct MCV MCH MCHC RDW Plt Count MPV Neut % (Auto) Lymph % (Auto) [place] % (Auto) Eos % (Auto) Baso % (Auto) Neut # (Auto) Lymph # (Auto) [place] # (Auto) Eos # (Auto) Baso # (Auto) Puncture Site pCO2 pO2 HCO3 ABG pH ABG Total CO2 ABG O2 Saturation ABG Base Excess Tavo Test ABG Potassium A-a O2 Difference Respiratory Index Glucose Lactate Vent Mode Mechanical Rate FiO2 PEEP Sodium Potassium Chloride Carbon Dioxide Anion Gap BUN Creatinine Est GFR ( Amer) Est GFR (Non-Af Amer) POC Glucose (mg/dL) 168 H Random Glucose Lactic Acid Calcium Total Bilirubin AST ALT Alkaline Phosphatase Total Protein Albumin Globulin Albumin/Globulin Ratio Arterial Blood Potassium RPR Hepatitis A IgM Ab Hep Bs Antigen Hep Bs Antibody Hep B Core IgM Ab Hepatitis C Antibody HIV 1&2 Antibody Screen Blood Type A POSITIVE Blood Type Confirm A POSITIVE Antibody Screen Negative 09/19/18 09/19/18 09/19/18 06:30 07:58 09:51 WBC 12.3 H RBC 3.49 L Hgb 10.4 L Hct 30.6 L MCV 87.6 D MCH 29.9 MCHC 34.1 RDW 15.0 H Plt Count 177 D MPV 7.6 Neut % (Auto) 78.1 H Lymph % (Auto) 13.7 L [place] % (Auto) 7.9 Eos % (Auto) 0.0 Baso % (Auto) 0.3 Neut # (Auto) 9.6 H Lymph # (Auto) 1.7 [place] # (Auto) 1.0 H Eos # (Auto) 0.0 Baso # (Auto) 0.0 Puncture Site Lr pCO2 33 L pO2 131 H HCO3 23.2 ABG pH 7.42 ABG Total CO2 22.4 ABG O2 Saturation 99.4 H ABG Base Excess -2.3 L Tavo Test Pos ABG Potassium 3.5 L A-a O2 Difference 184.0 Respiratory Index 1.4 Glucose 211 H Lactate 2.3 H Vent Mode A/c pc Mechanical Rate 18 FiO2 50.0 PEEP 5 Sodium 137.0 Potassium Chloride 112.0 H Carbon Dioxide Anion Gap BUN Creatinine Est GFR ( Amer) Est GFR (Non-Af Amer) POC Glucose (mg/dL) Random Glucose Lactic Acid Calcium Total Bilirubin AST ALT Alkaline Phosphatase Total Protein Albumin Globulin Albumin/Globulin Ratio Arterial Blood Potassium 3.5 L RPR Hepatitis A IgM Ab Hep Bs Antigen Hep Bs Antibody Hep B Core IgM Ab Hepatitis C Antibody HIV 1&2 Antibody Screen Negative Blood Type Blood Type Confirm Antibody Screen 09/19/18 11:48 WBC RBC Hgb Hct MCV MCH MCHC RDW Plt Count MPV Neut % (Auto) Lymph % (Auto) [place] % (Auto) Eos % (Auto) Baso % (Auto) Neut # (Auto) Lymph # (Auto) [place] # (Auto) Eos # (Auto) Baso # (Auto) Puncture Site pCO2 pO2 HCO3 ABG pH ABG Total CO2 ABG O2 Saturation ABG Base Excess Tavo Test ABG Potassium A-a O2 Difference Respiratory Index Glucose Lactate Vent Mode Mechanical Rate FiO2 PEEP Sodium Potassium Chloride Carbon Dioxide Anion Gap BUN Creatinine Est GFR ( Amer) Est GFR (Non-Af Amer) POC Glucose (mg/dL) 228 H Random Glucose Lactic Acid Calcium Total Bilirubin AST ALT Alkaline Phosphatase Total Protein Albumin Globulin Albumin/Globulin Ratio Arterial Blood Potassium RPR Hepatitis A IgM Ab Hep Bs Antigen Hep Bs Antibody Hep B Core IgM Ab Hepatitis C Antibody HIV 1&2 Antibody Screen Blood Type Blood Type Confirm Antibody Screen Assessment & Plan - Assessment and Plan (Free Text) Assessment: Hypoxic respiratory failure: continue ventilation to keep spo2 >92 and pH b/w 7.35-7.45, continue bronchodilators -SVT: start verapamil PRN -PVD: 2nd long history of smoking, will benefit from asa, statin and IV heparin, start milrinone, serial lactic, vascular chcek q1hrs -s/p fasciotomy: serial CK adn continue IVF -sedation: versed/fentanyl (allergic to dilaudid) -dvt ppx IV heparin -PUD ppx protonix -BGm q4hrs, ISS aspart Patient remains critical cc time 45 minutes Family at bedside informed of above events, all questions answered -will keep intubated for 24 hours to monitor for any hypoperfusion, if no further procedure indicated will extubate. - Date & Time Date: 09/19/18 Time: 12:40
[2018-09-19] MEDS: Milrinone 20 MG in Dextrose 5% In Water 80 ML IV SCH (12:55)
[2018-09-19] MEDS: Heparin25000 units/250ml 1/2NS 25,000 UNITS/250 ML BAG IV PRN (13:00)
[2018-09-19 13:24] LABS: INR 1.4; PROTHROMBIN TIME 15.2 SECONDS (9.7-12.2)
[2018-09-19 13:40] LABS: CK-MB 34.2 ng/mL (0.0-3.38)
[2018-09-19 14:18] LABS: ALB/GLOB RATIO 1.2 (1.0-2.1); ALBUMIN 2.2 g/dL (3.5-5.0); ALT/SGPT 42 U/L (9-52); AST/SGOT 76 U/L (14-36); BLOOD UREA NITROGEN 3 mg/dL (7-17); CALCIUM 6.9 mg/dl (8.6-10.4); GFR NON-AFRICAN AMERICAN > 60
[2018-09-19 15:01] LABS: BARBITURATES, UR NEGATIVE (NEGATIVE); PHENCYCLIDINE, UR NEGATIVE (NEGATIVE)
[2018-09-19 15:15] LABS: BENZODIAZEPINES, UR POSITIVE (NEGATIVE); OPIATES, UR POSITIVE (NEGATIVE)
--- NOTE | 2018-09-19 15:38 | RAD ---
Date of service: 09/19/2018 PROCEDURE: Intraoperative Fluoroscopy. HISTORY: POPLITEAL POSTERIOR TIBIAL ARTER BYPASS FINDINGS: Fluoroscopic assistance was provided for lower extremity arterial procedure. Please refer to the operative report from [facility]. 213.6 sec of fluoro time was utilized with a total cumulative radiation dose of 14.49 mGy.
[2018-09-19] MEDS ORDERED: Sodium Bicarbonate 8.4% 150 MEQ in Dextrose 5% In Water 850 ML IV SCH (17:30)
[2018-09-19 18:40] LABS: BASO % 0.3 % (0.0-2.0); HEMOGLOBIN 8.9 g/dL (11.0-16.0); LYMPH # 2.2 K/uL (1.0-4.3); LYMPH % 20.1 % (20.0-40.0); MEAN CELL VOLUME 87.9 fL (81.0-99.0); MEAN CORPUSCULAR HEMOGLOBIN 30.3 pg (27.0-31.0); MEAN CORPUSCULAR HGB CONC 34.5 g/dL (33.0-37.0); MEAN PLATELET VOLUME 7.8 fL (7.2-11.7); MONO # 1.2 K/uL (0.0-0.8); MONO % 11.5 % (0.0-10.0); NEUT # 7.3 K/uL (1.8-7.0); NEUT % 68.1 % (50.0-75.0); RBC 2.92 Mil/uL (3.80-5.20); RED CELL DISTRIBUTION WIDTH 15.5 % (11.5-14.5); WHITE BLOOD COUNT 10.8 K/uL (4.8-10.8)
--- NOTE | 2018-09-19 18:45 | CT ---
Date of service: 09/18/2018 PROCEDURE: CT Angiography Abdomen, Pelvis and Lower Extremity with Contrast HISTORY: non doplerable pulse and cold foot COMPARISON: None available. TECHNIQUE: Technique: CT angiography of the abdomen, pelvis and bilateral lower extremities performed in the arterial phase of enhancement. Coronal and sagittal reformats, and well as rotating MIP images of the vessels generated at the workstation. Intravenous contrast dose: Radiation dose: Total exam DLP = 2410.79 mGy-cm. This CT exam was performed using one or more of the following dose reduction techniques: Automated exposure control, adjustment of the mA and/or kV according to patient size, and/or use of iterative reconstruction technique. FINDINGS: CT ANGIOGRAPHY: ABDOMINAL AORTA:: Widely patent through its bifurcation. MAJOR AORTIC BRANCHES: Celiac Pioneer: Unremarkable. Superior mesenteric artery: Unremarkable. Inferior mesenteric artery: Unremarkable. Renal arteries: Unremarkable. PELVIC ARTERIES: Right Common Iliac: Unremarkable. Right External Iliac: Unremarkable. Right Internal Iliac: Unremarkable. Left Common Iliac: Unremarkable. Left External Iliac: Unremarkable. Left Internal Iliac: Unremarkable. RIGHT LOWER EXTREMITY ARTERIES: Right Common Femoral: Unremarkable. Right Superficial Femoral: Unremarkable. Right Profunda Femoris: Unremarkable. Right Popliteal:Unremarkable. Right Anterior Tibial: Occludes nearly medially after its origin but appears to reconstitute at the proximal right leg nevertheless stating patent up to just for the ankle there is no longer any detectable enhancement. Right Tibioperoneal Trunk: Occludes shortly after its origin without reconstitution. Right Posterior Tibial: Is occluded at its origin and a short proximal segment with reconstitution at the mid calf level. The arteries is patent to the ankle and plantar arch. Right Peroneal: Occludes proximally and reconstitutes at the inferior calf level and states patent to the ankle. Right dorsalis pedis : Not clearly identified. Extensive postoperative changes are identified at the right knee including fatty edema and superficial and deep subcutaneous soft tissue edema. A deep popliteal hematomas appreciated measuring 2.3 x 1.7 x 7.0 cm (transverse by anteroposterior by superoinferior dimensions). LEFT LOWER EXTREMITY ARTERIES: Left Common Femoral: Unremarkable. Left Superficial Femoral: Unremarkable. Left Profunda Femoris: Unremarkable. Left Popliteal: Unremarkable. Left Anterior Tibial: Unremarkable. Left Tibioperoneal Trunk: Unremarkable. Left Posterior Tibial: Unremarkable. Left Peronea: Unremarkable. Left Dorsalis pedis: Unremarkable. NON-ANGIOGRAPHIC ASPECT OF THE EXAM: LOWER THORAX: Unremarkable. LIVER: Mild diminished attenuation of the liver suggests fatty infiltration. No hepatic mass or intrahepatic biliary dilatation is identified. Tiny lucency seen the inferior right lobe too small to characterize. GALLBLADDER AND BILE DUCTS: Unremarkable. PANCREAS: Unremarkable. No gross lesion or ductal dilatation. SPLEEN: Unremarkable. ADRENALS: Unremarkable. No mass. KIDNEYS AND URETERS: Unremarkable. No hydronephrosis. No solid mass. STOMACH AND BOWEL: Unremarkable. No obstruction. No gross mural thickening. APPENDIX: Normal appendix. PERITONEUM: Limited pelvic ascites possibly related to this at left adnexal cyst rupture. LYMPH NODES: Unremarkable. No enlarged lymph nodes. BLADDER: Limited gas seen in a mildly distended bladder at its nondependent portion. REPRODUCTIVE: A 2 cm partially collapsed follicle is seen the left ovary BONES: No acute fracture. OTHER FINDINGS: Innumerable injection granulomata are seen scattered along the bilateral buttocks superficial and deep subcutaneous fat. IMPRESSION: 1. Occlusion of the proximal anterior and posterior tibial arteries identified as well as the peroneal artery and tibioperoneal trunk with reconstitution at the mid to lower calf level. Post tibial artery stays patent to the plantar arch with the anterior tibial occluding just proximal to the ankle and the perineal terminating at the ankle. 2. Postoperative changes are identified involving the knee including a deep popliteal fossa hematoma 7.0 cm greatest dimension as discussed above. 3. Other abdominal pelvic findings as discussed above. Concordant preliminary report from [facility], 09/19/2018.
[2018-09-19 18:46] LABS: INR 1.3; PROTHROMBIN TIME 14.7 SECONDS (9.7-12.2)
[2018-09-19 18:52] LABS: SQUAMOUS EPITHIAL < 1 /hpf (0-5); URINE BILIRUBIN NEGATIVE (NEGATIVE); URINE BLOOD 1+ (NEGATIVE); URINE CLARITY Clear (Clear); URINE COLOR Amber (YELLOW); URINE GLUCOSE (UA) 3+ mg/dL (Normal); URINE LEUKOCYTE ESTERASE NEG Leu/uL (Negative); URINE PROTEIN NEGATIVE (NEGATIVE)
[2018-09-19 19:10] LABS: ALB/GLOB RATIO 1.1 (1.0-2.1); ALBUMIN 2.1 g/dL (3.5-5.0); ALT/SGPT 46 U/L (9-52); AST/SGOT 85 U/L (14-36); BLOOD UREA NITROGEN 3 mg/dL (7-17); GFR NON-AFRICAN AMERICAN > 60
[2018-09-19 19:20] LABS: CK-MB 24.5 ng/mL (0.0-3.38)
--- NOTE | 2018-09-19 19:58 | CP.PCM.PN ---
Subjective - Date & Time of Evaluation Date of Evaluation: 09/19/18 Time of Evaluation: 19:42 - Subjective Subjective: pulseless right leg no dopplers at ankle \\ pat tachy at 130+ BP 130 plus examined on vent with /daughter options reviewed and discussed with family including re exploration which i did not recommend . treatment including anti coagulation and stabilization. reviewed with staff. Janet Servin Objective - Vital Signs/Intake and Output Vital Signs (last 24 hours): Temp Pulse Resp BP Pulse Ox 99.5 F 143 H 20 136/76 100 09/19/18 14:00 09/19/18 17:40 09/19/18 17:40 09/19/18 17:11 09/19/18 17:40 Intake and Output: 09/19/18 09/20/18 18:59 05:59 Intake Total 1838.2 Output Total 2405 Balance -566.8 - Medications Medications: Current Medications Aspirin (Aspirin Chewable) 81 mg PO DAILY [facility] Last Admin: 09/19/18 14:20 Dose: 81 mg Heparin Sodium/Sodium Chloride (Heparin 55161 Units/250ml 1/2 Normal Saline) 25,000 units in 250 mls @ 12.247 mls/hr IV .[id number] PRN; Protocol PRN Reason: PROTOCOL Last Admin: 09/19/18 13:00 Dose: 18 units/kg/hr, 12.247 mls/hr Midazolam HCl 100 mg/ Sodium (Chloride) 100 mls @ 1.36 mls/hr IV .Q24H MOSES; Protocol Last Admin: 09/19/18 09:30 Dose: 0.02 mg/kg/hr, 1.36 mls/hr Fentanyl Citrate 2,500 mcg/ (Sodium Chloride) 250 mls @ 13.61 mls/hr IV .[id number] MOSES; Protocol Last Admin: 09/19/18 09:32 Dose: 2 mcg/kg/hr, 13.61 mls/hr Dextrose/Sodium Chloride (Dextrose 5%/0.9% Ns 1000 Ml) 1,000 mls @ 125 mls/hr IV .Q8H MOSES Last Admin: 09/19/18 17:56 Dose: 125 mls/hr Milrinone Lactate/Dextrose 20 (mg/ Dextrose) 100 mls @ 4.08 mls/hr IV .Q24H MOSES Last Admin: 09/19/18 12:55 Dose: 4.08 mls/hr Sodium Bicarbonate 150 meq/ (Dextrose) 1,000 mls @ 75 mls/hr IV .[id number] MOSES Last Admin: 09/19/18 17:58 Dose: 75 mls/hr Insulin Aspart (Novolog) 0 unit SC Q4H MOSES; Protocol Last Admin: 09/19/18 17:57 Dose: 2 unit Rosuvastatin Calcium (Crestor) 10 mg PO HS [facility] Verapamil HCl (Verapamil Inj) 2.5 mg IVP Q4H PRN PRN Reason: Heart rate - Labs Labs: 09/19/18 18:35 09/19/18 18:37 PT 14.7 SECONDS (9.7-12.2) H 09/19/18 18:35 INR 1.3 09/19/18 18:35 APTT 39 SECONDS (21-34) H D 09/19/18 18:35
[2018-09-19] MEDS ORDERED: Potassium Phosphate 30 MMOLE in Sodium Chloride 0.9% 250 ML IVPB ONE (20:50)
--- NOTE | 2018-09-19 21:09 | OP ---
PROCEDURE DATE: 09/19/2018 HISTORY: The patient is a 42-year-old woman with a history of smoking, admitted to the hospital for a knee surgery that she underwent today. I was called by the anesthesiologist to see the patient in recovery room as he was concerned regarding a loss of pulse in the right leg which was the side that was operated on. Prior to the operation, the patient was unable to move her foot and she had no dorsiflexion, but she did have sensation that was quite painful. Prior to the operation, we obtained a CT angiogram which showed abrupt cutoff popliteal artery at the level of the knee, only the posterior tibial, less overall. SURGEON: Arsh Servin Jr., MD CARPENTER/LABOR: Nidhi Jenkins DO ANESTHESIA ADMINISTERED BY: Wagner Calderón MD PREOPERATIVE DIAGNOSIS: Ischemic right leg. POSTOPERATIVE DIAGNOSIS: Ischemic right leg. PROCEDURES CARRIED OUT: 1. Right common femoral thromboembolectomy of femoral artery using Xavier balloon catheters and a closure with a bovine patch. 2. Exploration of the right popliteal fossa. 3. Right proximal popliteal to mid-calf posterior tibial artery using reverse saphenous vein harvested from the left leg, intraoperative arteriogram. 4. Additionally, another procedure carried out was at completion of the procedure, a final angiogram showed that there was a high grade stenosis at the terminal anastomosis. Because of this, we did another puncture of the actual graft in the calf, placed a Command ES wire distally and then placed a 2 mm x 25 mm balloon here with improved cosmetic result, and then the procedure was terminated and wounds were closed. BLOOD LOSS FOR THE PROCEDURE: Over 1500 mL. The patient completed the operation relatively stable. DESCRIPTION OF PROCEDURE: The patient was given general anesthesia. Legs were prepped and draped with Betadine and Hibiclens. A cutdown was made in the right common femoral artery. The common, superficial, and profunda femoris arteries were involved. Heparin was given that had been started prior to the operation, and first a 5-Guyanese sheath was passed into this, and then an angiogram was carried out showing the abrupt occlusion of the popliteal artery and there was no reconstruction of any named vessels distally. We were able to pass Xavier catheters from above, unable to pass Command ES wires or any other wire down into the vessel through the popliteal artery to the mid-joint space. We abandoned the top part of the procedure and closed this. We then went down to the popliteal artery below the knee, attempted to dissect this out. Since we easily dissected out the femoral vein, we dissected out the vessels that were adjacent. We were unable, however, to positively identify the popliteal artery. The vein, yes; nerve, yes; the popliteal artery, I was unable to identify it in this very bloody, very ecchymotic area behind the knee. We then harvested the greater saphenous vein from the contralateral limb and then carried out, dissected out the posterior tibial artery at the calf, and then we dissected out the other vessels as necessary. We then completed the bypass from the posterior tibial artery to the proximal portion of the popliteal artery using loop magnification and heparin anticoagulation. At the end, there was satisfactory flow, but there was an overt area of discordance that we ballooned again with a 2-mm balloon. After we had done all this, we then carried out a fasciotomy over the anterior compartment which was very bulgy and painful. Then, we closed the wounds with Monocryl and nylon sutures. Some of these incisions simply had skin closed because we were concerned about possibility of any tumors etc. So, the operation carried out was an exploration of a right common femoral artery with thromboembolectomy with Bovine patch closure. Subsequently, we had a vein harvest from the left leg with a creation of a right popliteal to posterior tibial artery bypass. Then, we had a fasciotomy of the anterior compartment, multiple intraoperative arteriograms, and then the procedure was over. CONDITION: Satisfactory with excellent Doppler signals beyond the point of the anastomosis. Arsh Servin Jr., MD
[2018-09-20] MEDS: (Novolog) Insulin Aspart, Recombinant 100 u/ml 10 ml vial SC SCH ×4 (00:08→12:00)
[2018-09-20] MEDS: Milrinone 20 MG in Dextrose 5% In Water 80 ML IV SCH ×2 (01:00→13:00)
[2018-09-20] MEDS: Dextrose 5%/0.9% NS 1,000 ML IV SCH ×2 (01:05→05:44)
[2018-09-20 01:25] LABS: CK-MB 18.3 ng/mL (0.0-3.38)
[2018-09-20] MEDS: Midazolam 50 mg/10 ml 100 MG in Sodium Chloride 0.9% 80 ML IV SCH (05:45)
[2018-09-20 05:56] LABS: ARTERIAL BLOOD GAS HCO3 29.4 mmol/L (21-28); ARTERIAL BLOOD GAS O2 SAT 98.8 % (95-98); ARTERIAL BLOOD GAS PCO2 50 mm/Hg (35-45); ARTERIAL BLOOD GAS PH 7.41 (7.35-7.45); ARTERIAL BLOOD GAS PO2 86 mm/Hg (80-100); ARTERIAL BLOOD GAS TCO2 33.2 mmol/L (22-28)
[2018-09-20 06:33] LABS: BASO % 0.4 % (0.0-2.0); EOS % 0.2 % (0.0-4.0); HEMOGLOBIN 8.5 g/dL (11.0-16.0); LYMPH # 2.6 K/uL (1.0-4.3); LYMPH % 26.5 % (20.0-40.0); MEAN CELL VOLUME 89.7 fL (81.0-99.0); MEAN CORPUSCULAR HEMOGLOBIN 31.6 pg (27.0-31.0); MEAN CORPUSCULAR HGB CONC 35.2 g/dL (33.0-37.0); MEAN PLATELET VOLUME 8.3 fL (7.2-11.7); MONO # 1.1 K/uL (0.0-0.8); MONO % 11.2 % (0.0-10.0); NEUT # 5.9 K/uL (1.8-7.0); NEUT % 61.7 % (50.0-75.0); RBC 2.71 Mil/uL (3.80-5.20); WHITE BLOOD COUNT 9.6 K/uL (4.8-10.8)
[2018-09-20 06:52] LABS: ALT/SGPT 52 U/L (9-52); AST/SGOT 109 U/L (14-36); BLOOD UREA NITROGEN 3 mg/dL (7-17); CALCIUM 6.5 mg/dl (8.6-10.4); GFR NON-AFRICAN AMERICAN > 60
[2018-09-20] MEDS ORDERED: Potassium Phosphate 30 MMOLE in Sodium Chloride 0.9% 250 ML IVPB ONE (08:00)
[2018-09-20] MEDS ORDERED: Sodium Chloride 0.9% 1,000 ML IV ONE (08:14)
[2018-09-20] MEDS ORDERED: Potassium Chloride 20 mEq/15 ml LIQ UD PO ONE (08:30)
--- NOTE | 2018-09-20 09:00 | RAD ---
Date of service: 09/20/2018 HISTORY: Follow up intubated patient COMPARISON: Portable chest 09/19/2018. FINDINGS: LUNGS: Endotracheal tube is not significantly changed in position in the interval. No active pulmonary disease. PLEURA: No significant pleural effusion identified, no pneumothorax apparent. CARDIOVASCULAR: No aortic atherosclerotic calcification present. Normal cardiac size. No pulmonary vascular congestion. OSSEOUS STRUCTURES: No significant abnormalities. VISUALIZED UPPER ABDOMEN: Normal. OTHER FINDINGS: None. IMPRESSION: No interval airspace disease, pleural effusion, pneumothorax or pulmonary vascular congestion appreciated.
--- NOTE | 2018-09-20 10:07 | CP.PCM.PN ---
Subjective - Date & Time of Evaluation Date of Evaluation: 09/20/18 Time of Evaluation: 10:04 - Subjective Subjective: condition reviewed and discussed with Dr Arreola, Dr Sullivan, and staff. graft occluded and foot has no doppler signals, concurrently dvt popliteal vein. labs noted examined with Dr Molina this am, seen with Dr Rousseau yesterday( Ortho chief) family aware of prognosis and risks of limb loss Objective - Vital Signs/Intake and Output Vital Signs (last 24 hours): Temp Pulse Resp BP Pulse Ox 99.8 F H 127 H 13 131/63 98 09/20/18 04:00 09/20/18 09:03 09/20/18 09:03 09/20/18 09:03 09/20/18 09:03 Intake and Output: 09/20/18 09/20/18 06:59 18:59 Intake Total 645.0 Output Total 145 Balance 500.0 - Medications Medications: Current Medications Acetaminophen (Tylenol 650 Mg Supp) 650 mg VA Q4 PRN PRN Reason: Fever >100.4 F Last Admin: 09/20/18 00:09 Dose: 650 mg Aspirin (Aspirin Chewable) 81 mg PO DAILY MOSES Last Admin: 09/20/18 09:01 Dose: 81 mg Heparin Sodium/Sodium Chloride (Heparin 73662 Units/250ml 1/2 Normal Saline) 25,000 units in 250 mls @ 12.247 mls/hr IV .[id number] PRN; Protocol PRN Reason: PROTOCOL Last Titration: 09/20/18 04:30 Dose: 17 units/kg/hr, 11.567 mls/hr Midazolam HCl 100 mg/ Sodium (Chloride) 100 mls @ 1.36 mls/hr IV .Q24H MOSES; Protocol Last Admin: 09/20/18 05:45 Dose: 0.07 mg/kg/hr, 5 mls/hr Fentanyl Citrate 2,500 mcg/ (Sodium Chloride) 250 mls @ 13.61 mls/hr IV .[id number] MOSES; Protocol Last Titration: 09/20/18 08:00 Dose: 4.4 mcg/kg/hr, 30 mls/hr Milrinone Lactate/Dextrose 20 (mg/ Dextrose) 100 mls @ 4.08 mls/hr IV .Q24H MOSES Last Admin: 09/20/18 01:00 EDT Dose: 4.08 mls/hr Potassium Phosphate 30 mmole/ (Sodium Chloride) 260 mls @ 42.5 mls/hr IVPB ONCE ONE Stop: 09/20/18 14:07 Last Admin: 09/20/18 08:15 Dose: 42.5 mls/hr Potassium Chloride (Potassium Chloride 10 Meq/100 Ml) 10 meq in 100 mls @ 100 mls/hr IVPB Q1H MOSES Stop: 09/20/18 10:59 Last Admin: 09/20/18 09:02 Dose: 100 mls/hr Sodium Chloride (Sodium Chloride 0.9%) 1,000 mls @ 75 mls/hr IV .[id number] ONE Stop: 09/20/18 21:33 Last Admin: 09/20/18 09:00 Dose: 75 mls/hr Insulin Aspart (Novolog) 0 unit SC Q4H MOSES; Protocol Last Admin: 09/20/18 08:55 Dose: 1 unit Rosuvastatin Calcium (Crestor) 10 mg PO HS MOSES Last Admin: 09/19/18 21:21 Dose: 10 mg Verapamil HCl (Verapamil Inj) 2.5 mg IVP Q4H PRN PRN Reason: Heart rate Last Admin: 09/20/18 09:54 Dose: 2.5 mg - Labs Labs: 09/20/18 06:28 09/20/18 06:28 PT 14.7 SECONDS (9.7-12.2) H 09/19/18 18:35 INR 1.3 09/19/18 18:35 APTT 130 SECONDS (21-34) H* D 09/20/18 02:59
[2018-09-20 10:36] LABS: CK-MB 17.1 ng/mL (0.0-3.38)
[2018-09-20] MEDS: Heparin25000 units/250ml 1/2NS 25,000 UNITS/250 ML BAG IV PRN (11:00)
--- NOTE | 2018-09-20 11:12 | CP.CCUPN ---
CCU Subjective - Physician Review Subjective (Free Text): patient remains stable on ventilator, tachycardia (sinus), mild fever 09/20/18 11:06 Critical Care Time Spent (in minutes): 40 CCU Objective - Vital Signs / Intake & Output Vital Signs (Last 4 hours): Vital Signs Pulse Resp BP Pulse Ox 09/20/18 09:03 127 H 13 131/63 98 09/20/18 09:00 122 H 13 99 09/20/18 08:19 116 H 09/20/18 08:03 117 H 11 L 128/74 100 09/20/18 08:00 122 H 13 99 Intake and Output (Last 8hrs): Intake & Output 09/19/18 09/20/18 09/20/18 23:59 06:59 14:59 Intake Total 794.6 Output Total 195 Balance 599.6 Weight Intake: IV 68.2 Intake, IV Amount 726.4 Left Antecubital 400 RFA #20 46.4 RFA #20 IVPB 32 Right Forearm 20 Right Proximal Port 150 Forearm Right Wrist 78 Oral Blood Product Red Blood Cells Cpd As1 Lr Unit [id number] Other Red Blood Cells Cpd As1 Lr Unit [id number] Output: Urine 195 Urethral (Van) 195 Stool Emesis Other: # Bowel Movements 0 - Physical Exam Head: Positive for: Atraumatic, Normocephalic Pupils: Positive for: PERRL Mouth: Positive for: Moist Mucous Membranes Neck: Positive for: Normal Range of Motion Respiratory/Chest: Positive for: Clear to Auscultation, Good Air Exchange, Rales. Negative for: Respiratory Distress, Rhonchi, Tachypneic Cardiovascular: Positive for: Normal S1, S2, Tachycardic Abdomen: Positive for: Normal Bowel Sounds Upper Extremity: Positive for: Normal Inspection Lower Extremity: Positive for: Other (right lower leg, cold (compared to left), no pulses palpable on right DP/PT) - Medications Active Medications: Active Medications Generic Name Dose Route Start Last Admin Trade Name Freq PRN Reason Stop Dose Admin Acetaminophen 650 mg 09/20/18 00:00 09/20/18 00:09 Tylenol 650 Mg Supp [place] 650 mg Q4 PRN Administration Fever >100.4 F Aspirin 81 mg 09/19/18 13:30 09/20/18 09:01 Aspirin Chewable PO 81 mg DAILY MOSES Administration Heparin Sodium/Sodium Chloride 25,000 units in 250 mls @ 12.247 mls/hr 09/18/18 23:16 09/20/18 11:00 Heparin 38429 Units/250ml 1/2 Normal Saline IV 17 units/kg/hr .[id number] PRN 11.567 mls/hr PROTOCOL Administration Protocol 18 UNITS/KG/HR Midazolam HCl 100 mg/ Sodium 100 mls @ 1.36 mls/hr 09/19/18 08:30 09/20/18 05:45 Chloride IV 0.07 mg/kg/hr .Q24H MOSES 5 mls/hr Administration Protocol 0.02 MG/KG/HR Fentanyl Citrate 2,500 mcg/ 250 mls @ 13.61 mls/hr 09/19/18 09:00 09/20/18 08:00 Sodium Chloride IV 4.4 mcg/kg/hr .[id number] MOSES 30 mls/hr Titration Protocol 2 MCG/KG/HR Milrinone Lactate/Dextrose 20 100 mls @ 4.08 mls/hr 09/19/18 11:45 09/20/18 01:00 EDT mg/ Dextrose IV 4.08 mls/hr .Q24H MOSES Administration 0.2 MCG/KG/MIN Potassium Phosphate 30 mmole/ 260 mls @ 42.5 mls/hr 09/20/18 08:00 09/20/18 08:15 Sodium Chloride IVPB 09/20/18 14:07 42.5 mls/hr ONCE ONE Administration Sodium Chloride 1,000 mls @ 75 mls/hr 09/20/18 08:14 09/20/18 09:00 Sodium Chloride 0.9% IV 09/20/18 21:33 75 mls/hr .[id number] ONE Administration Insulin Aspart 0 unit 09/20/18 00:00 09/20/18 08:55 Novolog SC 1 unit Q4H MOSES Administration Protocol Pantoprazole Sodium 40 mg 09/20/18 10:45 Protonix Inj IVP Q12H MOSES Rosuvastatin Calcium 10 mg 09/19/18 22:00 09/19/18 21:21 Crestor PO 10 mg HS MOSES Administration Verapamil HCl 2.5 mg 09/19/18 17:10 09/20/18 09:54 Verapamil Inj IVP 2.5 mg Q4H PRN Administration Heart rate - Patient Studies Lab Studies: Lab Studies 09/20/18 09/20/18 09/20/18 Range/Units 09:56 09:56 06:28 WBC 9.6 (4.8-10.8) K/uL RBC 2.71 L (3.80-5.20) Mil/uL Hgb 8.5 L (11.0-16.0) g/dL Hct 24.3 L (34.0-47.0) % MCV 89.7 (81.0-99.0) fL MCH 31.6 H (27.0-31.0) pg MCHC 35.2 (33.0-37.0) g/dL RDW 16.0 H (11.5-14.5) % Plt Count 126 L D (130-400) K/uL MPV 8.3 (7.2-11.7) fL Neut % (Auto) 61.7 (50.0-75.0) % Lymph % (Auto) 26.5 (20.0-40.0) % [place] % (Auto) 11.2 H (0.0-10.0) % Eos % (Auto) 0.2 (0.0-4.0) % Baso % (Auto) 0.4 (0.0-2.0) % Neut # (Auto) 5.9 (1.8-7.0) K/uL Lymph # (Auto) 2.6 (1.0-4.3) K/uL [place] # (Auto) 1.1 H (0.0-0.8) K/uL Eos # (Auto) 0.0 (0.0-0.7) K/uL Baso # (Auto) 0.0 (0.0-0.2) K/uL PT (9.7-12.2) SECONDS INR APTT 63 H D (21-34) SECONDS Puncture Site pCO2 (35-45) mm/Hg pO2 (80-100) mm/Hg HCO3 (21-28) mmol/L ABG pH (7.35-7.45) ABG Total CO2 (22-28) mmol/L ABG O2 Saturation (95-98) % ABG Base Excess (-2.0-3.0) mmol/L Tavo Test ABG Potassium (3.6-5.2) mmol/L A-a O2 Difference mm/Hg Respiratory Index Glucose (65-105) mg/dl Lactate (0.7-2.1) mmol/L Vent Mode Mechanical Rate FiO2 % PEEP Sodium (132-148) mmol/L Potassium (3.6-5.2) mmol/L Chloride (98-107) mmol/L Carbon Dioxide (22-30) mmol/L Anion Gap (10-20) BUN (7-17) mg/dL Creatinine (0.7-1.2) mg/dL Est GFR ( Amer) Est GFR (Non-Af Amer) POC Glucose (mg/dL) (65-110) mg/dL Random Glucose (65-105) mg/dL Lactic Acid (0.7-2.1) mmol/L Calcium (8.6-10.4) mg/dl Phosphorus (2.5-4.5) mg/dL Magnesium (1.6-2.3) mg/dL Total Bilirubin (0.2-1.3) mg/dL AST (14-36) U/L ALT (9-52) U/L Alkaline Phosphatase (38-126) U/L Total Creatine Kinase 7800 H (30-135) U/L CK-MB (Mass) 17.1 H (0.0-3.38) ng/mL Troponin I < 0.0120 (0.00-0.120) ng/mL Total Protein (6.3-8.3) g/dL Albumin (3.5-5.0) g/dL Globulin (2.2-3.9) gm/dL Albumin/Globulin Ratio (1.0-2.1) Arterial Blood Potassium (3.6-5.2) mmol/L Urine Color (YELLOW) Urine Clarity (Clear) Urine pH (5.0-8.0) Ur Specific [place] (1.003-1.030) Urine Protein (NEGATIVE) mg/dL Urine Glucose (UA) (Normal) mg/dL Urine Ketones (NEGATIVE) mg/dL Urine Blood (NEGATIVE) Urine Nitrate (NEGATIVE) Urine Bilirubin (NEGATIVE) Urine Urobilinogen (0.2-1.0) mg/dL Ur Leukocyte Esterase (Negative) Umu/uL Urine WBC (Auto) (0-5) /hpf Urine RBC (Auto) (0-3) /hpf Ur Squamous Epith Cells (0-5) /hpf Urine Opiates Screen (NEGATIVE) Urine Methadone Screen (NEGATIVE) Ur Barbiturates Screen (NEGATIVE) Ur Phencyclidine Scrn (NEGATIVE) Ur Amphetamines Screen (NEGATIVE) U Benzodiazepines Scrn (NEGATIVE) U Oth Cocaine Metabols (NEGATIVE) U Cannabinoids Screen (NEGATIVE) Blood Type Antibody Screen 09/20/18 09/20/18 09/20/18 Range/Units 06:28 05:45 05:29 WBC (4.8-10.8) K/uL RBC (3.80-5.20) Mil/uL Hgb (11.0-16.0) g/dL Hct (34.0-47.0) % MCV (81.0-99.0) fL MCH (27.0-31.0) pg MCHC (33.0-37.0) g/dL RDW (11.5-14.5) % Plt Count (130-400) K/uL MPV (7.2-11.7) fL Neut % (Auto) (50.0-75.0) % Lymph % (Auto) (20.0-40.0) % [place] % (Auto) (0.0-10.0) % Eos % (Auto) (0.0-4.0) % Baso % (Auto) (0.0-2.0) % Neut # (Auto) (1.8-7.0) K/uL Lymph # (Auto) (1.0-4.3) K/uL [place] # (Auto) (0.0-0.8) K/uL Eos # (Auto) (0.0-0.7) K/uL Baso # (Auto) (0.0-0.2) K/uL PT (9.7-12.2) SECONDS INR APTT (21-34) SECONDS Puncture Site Rb pCO2 50 H (35-45) mm/Hg pO2 86 (80-100) mm/Hg HCO3 29.4 H (21-28) mmol/L ABG pH 7.41 (7.35-7.45) ABG Total CO2 33.2 H (22-28) mmol/L ABG O2 Saturation 98.8 H (95-98) % ABG Base Excess 5.8 H (-2.0-3.0) mmol/L Tavo Test Na ABG Potassium 3.0 L (3.6-5.2) mmol/L A-a O2 Difference 101.0 mm/Hg Respiratory Index 1.2 Glucose 159 H (65-105) mg/dl Lactate 1.2 (0.7-2.1) mmol/L Vent Mode A/c pc Mechanical Rate 20 FiO2 35.0 % PEEP 5 Sodium 136 140.0 (132-148) mmol/L Potassium 3.2 L (3.6-5.2) mmol/L Chloride 104 108.0 H (98-107) mmol/L Carbon Dioxide 29 (22-30) mmol/L Anion Gap 6 L (10-20) BUN 3 L (7-17) mg/dL Creatinine 0.4 L (0.7-1.2) mg/dL Est GFR ( Amer) > 60 Est GFR (Non-Af Amer) > 60 POC Glucose (mg/dL) 162 H (65-110) mg/dL Random Glucose 151 H (65-105) mg/dL Lactic Acid (0.7-2.1) mmol/L Calcium 6.5 L (8.6-10.4) mg/dl Phosphorus 2.4 L (2.5-4.5) mg/dL Magnesium 1.7 (1.6-2.3) mg/dL Total Bilirubin 1.3 (0.2-1.3) mg/dL AST 109 H D (14-36) U/L ALT 52 (9-52) U/L Alkaline Phosphatase 41 (38-126) U/L Total Creatine Kinase (30-135) U/L CK-MB (Mass) (0.0-3.38) ng/mL Troponin I (0.00-0.120) ng/mL Total Protein 3.9 L (6.3-8.3) g/dL Albumin 2.0 L (3.5-5.0) g/dL Globulin 1.9 L (2.2-3.9) gm/dL Albumin/Globulin Ratio 1.0 (1.0-2.1) Arterial Blood Potassium 3.0 L (3.6-5.2) mmol/L Urine Color (YELLOW) Urine Clarity (Clear) Urine pH (5.0-8.0) Ur Specific [place] (1.003-1.030) Urine Protein (NEGATIVE) mg/dL Urine Glucose (UA) (Normal) mg/dL Urine Ketones (NEGATIVE) mg/dL Urine Blood (NEGATIVE) Urine Nitrate (NEGATIVE) Urine Bilirubin (NEGATIVE) Urine Urobilinogen (0.2-1.0) mg/dL Ur Leukocyte Esterase (Negative) Umu/uL Urine WBC (Auto) (0-5) /hpf Urine RBC (Auto) (0-3) /hpf Ur Squamous Epith Cells (0-5) /hpf Urine Opiates Screen (NEGATIVE) Urine Methadone Screen (NEGATIVE) Ur Barbiturates Screen (NEGATIVE) Ur Phencyclidine Scrn (NEGATIVE) Ur Amphetamines Screen (NEGATIVE) U Benzodiazepines Scrn (NEGATIVE) U Oth Cocaine Metabols (NEGATIVE) U Cannabinoids Screen (NEGATIVE) Blood Type Antibody Screen 09/20/18 09/20/18 09/20/18 Range/Units 02:59 01:43 EST 00:07 WBC (4.8-10.8) K/uL RBC (3.80-5.20) Mil/uL Hgb (11.0-16.0) g/dL Hct (34.0-47.0) % MCV (81.0-99.0) fL MCH (27.0-31.0) pg MCHC (33.0-37.0) g/dL RDW (11.5-14.5) % Plt Count (130-400) K/uL MPV (7.2-11.7) fL Neut % (Auto) (50.0-75.0) % Lymph % (Auto) (20.0-40.0) % [place] % (Auto) (0.0-10.0) % Eos % (Auto) (0.0-4.0) % Baso % (Auto) (0.0-2.0) % Neut # (Auto) (1.8-7.0) K/uL Lymph # (Auto) (1.0-4.3) K/uL [place] # (Auto) (0.0-0.8) K/uL Eos # (Auto) (0.0-0.7) K/uL Baso # (Auto) (0.0-0.2) K/uL PT (9.7-12.2) SECONDS INR APTT 130 H* D (21-34) SECONDS Puncture Site pCO2 (35-45) mm/Hg pO2 (80-100) mm/Hg HCO3 (21-28) mmol/L ABG pH (7.35-7.45) ABG Total CO2 (22-28) mmol/L ABG O2 Saturation (95-98) % ABG Base Excess (-2.0-3.0) mmol/L [place]avo Test ABG Potassium (3.6-5.2) mmol/L A-a O2 Difference mm/Hg Respiratory Index Glucose (65-105) mg/dl Lactate (0.7-2.1) mmol/L Vent Mode Mechanical Rate FiO2 % PEEP Sodium (132-148) mmol/L Potassium (3.6-5.2) mmol/L Chloride (98-107) mmol/L Carbon Dioxide (22-30) mmol/L Anion Gap (10-20) BUN (7-17) mg/dL Creatinine (0.7-1.2) mg/dL Est GFR ( Amer) Est GFR (Non-Af Amer) POC Glucose (mg/dL) 128 H (65-110) mg/dL Random Glucose (65-105) mg/dL Lactic Acid (0.7-2.1) mmol/L Calcium (8.6-10.4) mg/dl Phosphorus (2.5-4.5) mg/dL Magnesium (1.6-2.3) mg/dL Total Bilirubin (0.2-1.3) mg/dL AST (14-36) U/L ALT (9-52) U/L Alkaline Phosphatase (38-126) U/L Total Creatine Kinase 5736 H (30-135) U/L CK-MB (Mass) 18.3 H (0.0-3.38) ng/mL Troponin I < 0.0120 (0.00-0.120) ng/mL Total Protein (6.3-8.3) g/dL Albumin (3.5-5.0) g/dL Globulin (2.2-3.9) gm/dL Albumin/Globulin Ratio (1.0-2.1) Arterial Blood Potassium (3.6-5.2) mmol/L Urine Color (YELLOW) Urine Clarity (Clear) Urine pH (5.0-8.0) Ur Specific [place] (1.003-1.030) Urine Protein (NEGATIVE) mg/dL Urine Glucose (UA) (Normal) mg/dL Urine Ketones (NEGATIVE) mg/dL Urine Blood (NEGATIVE) Urine Nitrate (NEGATIVE) Urine Bilirubin (NEGATIVE) Urine Urobilinogen (0.2-1.0) mg/dL Ur Leukocyte Esterase (Negative) Umu/uL Urine WBC (Auto) (0-5) /hpf Urine RBC (Auto) (0-3) /hpf Ur Squamous Epith Cells (0-5) /hpf Urine Opiates Screen (NEGATIVE) Urine Methadone Screen (NEGATIVE) Ur Barbiturates Screen (NEGATIVE) Ur Phencyclidine Scrn (NEGATIVE) Ur Amphetamines Screen (NEGATIVE) U Benzodiazepines Scrn (NEGATIVE) U Oth Cocaine Metabols (NEGATIVE) U Cannabinoids Screen (NEGATIVE) Blood Type Antibody Screen 09/19/18 09/19/18 09/19/18 Range/Units 19:55 18:37 18:35 WBC 10.8 (4.8-10.8) K/uL RBC 2.92 L (3.80-5.20) Mil/uL Hgb 8.9 L (11.0-16.0) g/dL Hct 25.6 L (34.0-47.0) % MCV 87.9 (81.0-99.0) fL MCH 30.3 (27.0-31.0) pg MCHC 34.5 (33.0-37.0) g/dL RDW 15.5 H (11.5-14.5) % Plt Count 150 (130-400) K/uL MPV 7.8 (7.2-11.7) fL Neut % (Auto) 68.1 (50.0-75.0) % Lymph % (Auto) 20.1 (20.0-40.0) % [place] % (Auto) 11.5 H (0.0-10.0) % Eos % (Auto) 0.0 (0.0-4.0) % Baso % (Auto) 0.3 (0.0-2.0) % Neut # (Auto) 7.3 H (1.8-7.0) K/uL Lymph # (Auto) 2.2 (1.0-4.3) K/uL [place] # (Auto) 1.2 H (0.0-0.8) K/uL Eos # (Auto) 0.0 (0.0-0.7) K/uL Baso # (Auto) 0.0 (0.0-0.2) K/uL PT (9.7-12.2) SECONDS INR APTT (21-34) SECONDS Puncture Site pCO2 (35-45) mm/Hg pO2 (80-100) mm/Hg HCO3 (21-28) mmol/L ABG pH (7.35-7.45) ABG Total CO2 (22-28) mmol/L ABG O2 Saturation (95-98) % ABG Base Excess (-2.0-3.0) mmol/L Tavo Test ABG Potassium (3.6-5.2) mmol/L A-a O2 Difference mm/Hg Respiratory Index Glucose (65-105) mg/dl Lactate (0.7-2.1) mmol/L Vent Mode Mechanical Rate FiO2 % PEEP Sodium 136 (132-148) mmol/L Potassium 3.5 L (3.6-5.2) mmol/L Chloride 107 (98-107) mmol/L Carbon Dioxide 25 (22-30) mmol/L Anion Gap 7 L (10-20) BUN 3 L (7-17) mg/dL Creatinine 0.6 L (0.7-1.2) mg/dL Est GFR ( Amer) > 60 Est GFR (Non-Af Amer) > 60 POC Glucose (mg/dL) 171 H (65-110) mg/dL Random Glucose 175 H (65-105) mg/dL Lactic Acid (0.7-2.1) mmol/L Calcium 7.0 L (8.6-10.4) mg/dl Phosphorus 1.7 L (2.5-4.5) mg/dL Magnesium 1.7 (1.6-2.3) mg/dL Total Bilirubin 1.3 (0.2-1.3) mg/dL AST 85 H (14-36) U/L ALT 46 (9-52) U/L Alkaline Phosphatase 34 L (38-126) U/L Total Creatine Kinase (30-135) U/L CK-MB (Mass) 24.5 H (0.0-3.38) ng/mL Troponin I (0.00-0.120) ng/mL Total Protein 3.9 L (6.3-8.3) g/dL Albumin 2.1 L (3.5-5.0) g/dL Globulin 1.9 L (2.2-3.9) gm/dL Albumin/Globulin Ratio 1.1 (1.0-2.1) Arterial Blood Potassium (3.6-5.2) mmol/L Urine Color (YELLOW) Urine Clarity (Clear) Urine pH (5.0-8.0) Ur Specific [place] (1.003-1.030) Urine Protein (NEGATIVE) mg/dL Urine Glucose (UA) (Normal) mg/dL Urine Ketones (NEGATIVE) mg/dL Urine Blood (NEGATIVE) Urine Nitrate (NEGATIVE) Urine Bilirubin (NEGATIVE) Urine Urobilinogen (0.2-1.0) mg/dL Ur Leukocyte Esterase (Negative) Umu/uL Urine WBC (Auto) (0-5) /hpf Urine RBC (Auto) (0-3) /hpf Ur Squamous Epith Cells (0-5) /hpf Urine Opiates Screen (NEGATIVE) Urine Methadone Screen (NEGATIVE) Ur Barbiturates Screen (NEGATIVE) Ur Phencyclidine Scrn (NEGATIVE) Ur Amphetamines Screen (NEGATIVE) U Benzodiazepines Scrn (NEGATIVE) U Oth Cocaine Metabols (NEGATIVE) U Cannabinoids Screen (NEGATIVE) Blood Type Antibody Screen 09/19/18 09/19/18 09/19/18 Range/Units 18:35 18:20 17:20 WBC (4.8-10.8) K/uL RBC (3.80-5.20) Mil/uL Hgb (11.0-16.0) g/dL Hct (34.0-47.0) % MCV (81.0-99.0) fL MCH (27.0-31.0) pg MCHC (33.0-37.0) g/dL RDW (11.5-14.5) % Plt Count (130-400) K/uL MPV (7.2-11.7) fL Neut % (Auto) (50.0-75.0) % Lymph % (Auto) (20.0-40.0) % [place] % (Auto) (0.0-10.0) % Eos % (Auto) (0.0-4.0) % Baso % (Auto) (0.0-2.0) % Neut # (Auto) (1.8-7.0) K/uL Lymph # (Auto) (1.0-4.3) K/uL [place] # (Auto) (0.0-0.8) K/uL Eos # (Auto) (0.0-0.7) K/uL Baso # (Auto) (0.0-0.2) K/uL PT 14.7 H (9.7-12.2) SECONDS INR 1.3 APTT 39 H D (21-34) SECONDS Puncture Site pCO2 (35-45) mm/Hg pO2 (80-100) mm/Hg HCO3 (21-28) mmol/L ABG pH (7.35-7.45) ABG Total CO2 (22-28) mmol/L ABG O2 Saturation (95-98) % ABG Base Excess (-2.0-3.0) mmol/L Tavo Test ABG Potassium (3.6-5.2) mmol/L A-a O2 Difference mm/Hg Respiratory Index Glucose (65-105) mg/dl Lactate (0.7-2.1) mmol/L Vent Mode Mechanical Rate FiO2 % PEEP Sodium (132-148) mmol/L Potassium (3.6-5.2) mmol/L Chloride (98-107) mmol/L Carbon Dioxide (22-30) mmol/L Anion Gap (10-20) BUN (7-17) mg/dL Creatinine (0.7-1.2) mg/dL Est GFR ( Amer) Est GFR (Non-Af Amer) POC Glucose (mg/dL) (65-110) mg/dL Random Glucose (65-105) mg/dL Lactic Acid 1.3 (0.7-2.1) mmol/L Calcium (8.6-10.4) mg/dl Phosphorus (2.5-4.5) mg/dL Magnesium (1.6-2.3) mg/dL Total Bilirubin (0.2-1.3) mg/dL AST (14-36) U/L ALT (9-52) U/L Alkaline Phosphatase (38-126) U/L Total Creatine Kinase (30-135) U/L CK-MB (Mass) (0.0-3.38) ng/mL Troponin I (0.00-0.120) ng/mL Total Protein (6.3-8.3) g/dL Albumin (3.5-5.0) g/dL Globulin (2.2-3.9) gm/dL Albumin/Globulin Ratio (1.0-2.1) Arterial Blood Potassium (3.6-5.2) mmol/L Urine Color [place] (YELLOW) Urine Clarity Clear (Clear) Urine pH 5.0 (5.0-8.0) Ur Specific [place] 1.038 H (1.003-1.030) Urine Protein Negative (NEGATIVE) mg/dL Urine Glucose (UA) 3+ H (Normal) mg/dL Urine Ketones Trace (NEGATIVE) mg/dL Urine Blood 1+ H (NEGATIVE) Urine Nitrate Negative (NEGATIVE) Urine Bilirubin Negative (NEGATIVE) Urine Urobilinogen 2.0 H (0.2-1.0) mg/dL Ur Leukocyte Esterase Neg (Negative) Umu/uL Urine WBC (Auto) 2 (0-5) /hpf Urine RBC (Auto) 4 H (0-3) /hpf Ur Squamous Epith Cells < 1 (0-5) /hpf Urine Opiates Screen (NEGATIVE) Urine Methadone Screen (NEGATIVE) Ur Barbiturates Screen (NEGATIVE) Ur Phencyclidine Scrn (NEGATIVE) Ur Amphetamines Screen (NEGATIVE) U Benzodiazepines Scrn (NEGATIVE) U Oth Cocaine Metabols (NEGATIVE) U Cannabinoids Screen (NEGATIVE) Blood Type Antibody Screen 09/19/18 09/19/18 09/19/18 Range/Units 16:07 14:12 14:00 WBC (4.8-10.8) K/uL RBC (3.80-5.20) Mil/uL Hgb (11.0-16.0) g/dL Hct (34.0-47.0) % MCV (81.0-99.0) fL MCH (27.0-31.0) pg MCHC (33.0-37.0) g/dL RDW (11.5-14.5) % Plt Count (130-400) K/uL MPV (7.2-11.7) fL Neut % (Auto) (50.0-75.0) % Lymph % (Auto) (20.0-40.0) % [place] % (Auto) (0.0-10.0) % Eos % (Auto) (0.0-4.0) % Baso % (Auto) (0.0-2.0) % Neut # (Auto) (1.8-7.0) K/uL Lymph # (Auto) (1.0-4.3) K/uL [place] # (Auto) (0.0-0.8) K/uL Eos # (Auto) (0.0-0.7) K/uL Baso # (Auto) (0.0-0.2) K/uL PT (9.7-12.2) SECONDS INR APTT (21-34) SECONDS Puncture Site pCO2 (35-45) mm/Hg pO2 (80-100) mm/Hg HCO3 (21-28) mmol/L ABG pH (7.35-7.45) ABG Total CO2 (22-28) mmol/L ABG O2 Saturation (95-98) % ABG Base Excess (-2.0-3.0) mmol/L Tavo Test ABG Potassium (3.6-5.2) mmol/L A-a O2 Difference mm/Hg Respiratory Index Glucose (65-105) mg/dl Lactate (0.7-2.1) mmol/L Vent Mode Mechanical Rate FiO2 % PEEP Sodium (132-148) mmol/L Potassium (3.6-5.2) mmol/L Chloride (98-107) mmol/L Carbon Dioxide (22-30) mmol/L Anion Gap (10-20) BUN (7-17) mg/dL Creatinine (0.7-1.2) mg/dL Est GFR ( Amer) Est GFR (Non-Af Amer) POC Glucose (mg/dL) 201 H (65-110) mg/dL Random Glucose (65-105) mg/dL Lactic Acid 2.0 (0.7-2.1) mmol/L Calcium (8.6-10.4) mg/dl Phosphorus (2.5-4.5) mg/dL Magnesium (1.6-2.3) mg/dL Total Bilirubin (0.2-1.3) mg/dL AST (14-36) U/L ALT (9-52) U/L Alkaline Phosphatase (38-126) U/L Total Creatine Kinase (30-135) U/L CK-MB (Mass) (0.0-3.38) ng/mL Troponin I (0.00-0.120) ng/mL Total Protein (6.3-8.3) g/dL Albumin (3.5-5.0) g/dL Globulin (2.2-3.9) gm/dL Albumin/Globulin Ratio (1.0-2.1) Arterial Blood Potassium (3.6-5.2) mmol/L Urine Color (YELLOW) Urine Clarity (Clear) Urine pH (5.0-8.0) Ur Specific [place] (1.003-1.030) Urine Protein (NEGATIVE) mg/dL Urine Glucose (UA) (Normal) mg/dL Urine Ketones (NEGATIVE) mg/dL Urine Blood (NEGATIVE) Urine Nitrate (NEGATIVE) Urine Bilirubin (NEGATIVE) Urine Urobilinogen (0.2-1.0) mg/dL Ur Leukocyte Esterase (Negative) Umu/uL Urine WBC (Auto) (0-5) /hpf Urine RBC (Auto) (0-3) /hpf Ur Squamous Epith Cells (0-5) /hpf Urine Opiates Screen Positive H (NEGATIVE) Urine Methadone Screen Negative (NEGATIVE) Ur Barbiturates Screen Negative (NEGATIVE) Ur Phencyclidine Scrn Negative (NEGATIVE) Ur Amphetamines Screen Negative (NEGATIVE) U Benzodiazepines Scrn Positive (NEGATIVE) U Oth Cocaine Metabols Negative (NEGATIVE) U Cannabinoids Screen Positive H (NEGATIVE) Blood Type Antibody Screen 09/19/18 09/19/18 09/19/18 Range/Units 13:11 13:11 00:23 WBC (4.8-10.8) K/uL RBC (3.80-5.20) Mil/uL Hgb (11.0-16.0) g/dL Hct (34.0-47.0) % MCV (81.0-99.0) fL MCH (27.0-31.0) pg MCHC (33.0-37.0) g/dL RDW (11.5-14.5) % Plt Count (130-400) K/uL MPV (7.2-11.7) fL Neut % (Auto) (50.0-75.0) % Lymph % (Auto) (20.0-40.0) % [place] % (Auto) (0.0-10.0) % Eos % (Auto) (0.0-4.0) % Baso % (Auto) (0.0-2.0) % Neut # (Auto) (1.8-7.0) K/uL Lymph # (Auto) (1.0-4.3) K/uL [place] # (Auto) (0.0-0.8) K/uL Eos # (Auto) (0.0-0.7) K/uL Baso # (Auto) (0.0-0.2) K/uL PT 15.2 H (9.7-12.2) SECONDS INR 1.4 APTT 29 (21-34) SECONDS Puncture Site pCO2 (35-45) mm/Hg pO2 (80-100) mm/Hg HCO3 (21-28) mmol/L ABG pH (7.35-7.45) ABG Total CO2 (22-28) mmol/L ABG O2 Saturation (95-98) % ABG Base Excess (-2.0-3.0) mmol/L [place] Test ABG Potassium (3.6-5.2) mmol/L A-a O2 Difference mm/Hg Respiratory Index Glucose (65-105) mg/dl Lactate (0.7-2.1) mmol/L Vent Mode Mechanical Rate FiO2 % PEEP Sodium 136 (132-148) mmol/L Potassium 3.8 (3.6-5.2) mmol/L Chloride 107 (98-107) mmol/L Carbon Dioxide 25 (22-30) mmol/L Anion Gap 8 L (10-20) BUN 3 L (7-17) mg/dL Creatinine 0.6 L (0.7-1.2) mg/dL Est GFR ( Amer) > 60 Est GFR (Non-Af Amer) > 60 POC Glucose (mg/dL) (65-110) mg/dL Random Glucose 200 H (65-105) mg/dL Lactic Acid (0.7-2.1) mmol/L Calcium 6.9 L (8.6-10.4) mg/dl Phosphorus (2.5-4.5) mg/dL Magnesium (1.6-2.3) mg/dL Total Bilirubin 1.5 H (0.2-1.3) mg/dL AST 76 H D (14-36) U/L ALT 42 (9-52) U/L Alkaline Phosphatase 33 L D (38-126) U/L Total Creatine Kinase 5086 H (30-135) U/L CK-MB (Mass) 34.2 H (0.0-3.38) ng/mL Troponin I < 0.0120 (0.00-0.120) ng/mL Total Protein 4.0 L (6.3-8.3) g/dL Albumin 2.2 L D (3.5-5.0) g/dL Globulin 1.9 L (2.2-3.9) gm/dL Albumin/Globulin Ratio 1.2 (1.0-2.1) Arterial Blood Potassium (3.6-5.2) mmol/L Urine Color (YELLOW) Urine Clarity (Clear) Urine pH (5.0-8.0) Ur Specific [place] (1.003-1.030) Urine Protein (NEGATIVE) mg/dL Urine Glucose (UA) (Normal) mg/dL Urine Ketones (NEGATIVE) mg/dL Urine Blood (NEGATIVE) Urine Nitrate (NEGATIVE) Urine Bilirubin (NEGATIVE) Urine Urobilinogen (0.2-1.0) mg/dL Ur Leukocyte Esterase (Negative) Umu/uL Urine WBC (Auto) (0-5) /hpf Urine RBC (Auto) (0-3) /hpf Ur Squamous Epith Cells (0-5) /hpf Urine Opiates Screen (NEGATIVE) Urine Methadone Screen (NEGATIVE) Ur Barbiturates Screen (NEGATIVE) Ur Phencyclidine Scrn (NEGATIVE) Ur Amphetamines Screen (NEGATIVE) U Benzodiazepines Scrn (NEGATIVE) U Oth Cocaine Metabols (NEGATIVE) U Cannabinoids Screen (NEGATIVE) Blood Type A POSITIVE Antibody Screen Negative Laboratory Results - last 24 hr 09/19/18 09/19/18 09/19/18 00:23 13:11 13:11 WBC RBC Hgb Hct MCV MCH MCHC RDW Plt Count MPV Neut % (Auto) Lymph % (Auto) [place] % (Auto) Eos % (Auto) Baso % (Auto) Neut # (Auto) Lymph # (Auto) [place] # (Auto) Eos # (Auto) Baso # (Auto) PT 15.2 H INR 1.4 APTT 29 Puncture Site pCO2 pO2 HCO3 ABG pH ABG Total CO2 ABG O2 Saturation ABG Base Excess [place] Test ABG Potassium A-a O2 Difference Respiratory Index Glucose Lactate Vent Mode Mechanical Rate FiO2 PEEP Sodium 136 Potassium 3.8 Chloride 107 Carbon Dioxide 25 Anion Gap 8 L BUN 3 L Creatinine 0.6 L Est GFR ( Amer) > 60 Est GFR (Non-Af Amer) > 60 POC Glucose (mg/dL) Random Glucose 200 H Lactic Acid Calcium 6.9 L Phosphorus Magnesium Total Bilirubin 1.5 H AST 76 H D ALT 42 Alkaline Phosphatase 33 L D Total Creatine Kinase 5086 H CK-MB (Mass) 34.2 H Troponin I < 0.0120 Total Protein 4.0 L Albumin 2.2 L D Globulin 1.9 L Albumin/Globulin Ratio 1.2 Arterial Blood Potassium Urine Color Urine Clarity Urine pH Ur Specific [place] Urine Protein Urine Glucose (UA) Urine Ketones Urine Blood Urine Nitrate Urine Bilirubin Urine Urobilinogen Ur Leukocyte Esterase Urine WBC (Auto) Urine RBC (Auto) Ur Squamous Epith Cells Urine Opiates Screen Urine Methadone Screen Ur Barbiturates Screen Ur Phencyclidine Scrn Ur Amphetamines Screen U Benzodiazepines Scrn U Oth Cocaine Metabols U Cannabinoids Screen Blood Type A POSITIVE Antibody Screen Negative 09/19/18 09/19/18 09/19/18 14:00 14:12 16:07 WBC RBC Hgb Hct MCV MCH MCHC RDW Plt Count MPV Neut % (Auto) Lymph % (Auto) [place] % (Auto) Eos % (Auto) Baso % (Auto) Neut # (Auto) Lymph # (Auto) [place] # (Auto) Eos # (Auto) Baso # (Auto) PT INR APTT Puncture Site pCO2 pO2 HCO3 ABG pH ABG Total CO2 ABG O2 Saturation ABG Base Excess [place] Test ABG Potassium A-a O2 Difference Respiratory Index Glucose Lactate Vent Mode Mechanical Rate FiO2 PEEP Sodium Potassium Chloride Carbon Dioxide Anion Gap BUN Creatinine Est GFR ( Amer) Est GFR (Non-Af Amer) POC Glucose (mg/dL) 201 H Random Glucose Lactic Acid 2.0 Calcium Phosphorus Magnesium Total Bilirubin AST ALT Alkaline Phosphatase Total Creatine Kinase CK-MB (Mass) Troponin I Total Protein Albumin Globulin Albumin/Globulin Ratio Arterial Blood Potassium Urine Color Urine Clarity Urine pH Ur Specific [place] Urine Protein Urine Glucose (UA) Urine Ketones Urine Blood Urine Nitrate Urine Bilirubin Urine Urobilinogen Ur Leukocyte Esterase Urine WBC (Auto) Urine RBC (Auto) Ur Squamous Epith Cells Urine Opiates Screen Positive H Urine Methadone Screen Negative Ur Barbiturates Screen Negative Ur Phencyclidine Scrn Negative Ur Amphetamines Screen Negative U Benzodiazepines Scrn Positive U Oth Cocaine Metabols Negative U Cannabinoids Screen Positive H Blood Type Antibody Screen 09/19/18 09/19/18 09/19/18 17:20 18:20 18:35 WBC RBC Hgb Hct MCV MCH MCHC RDW Plt Count MPV Neut % (Auto) Lymph % (Auto) [place] % (Auto) Eos % (Auto) Baso % (Auto) Neut # (Auto) Lymph # (Auto) [place] # (Auto) Eos # (Auto) Baso # (Auto) PT 14.7 H INR 1.3 APTT 39 H D Puncture Site pCO2 pO2 HCO3 ABG pH ABG Total CO2 ABG O2 Saturation ABG Base Excess Tavo Test ABG Potassium A-a O2 Difference Respiratory Index Glucose Lactate Vent Mode Mechanical Rate FiO2 PEEP Sodium Potassium Chloride Carbon Dioxide Anion Gap BUN Creatinine Est GFR ( Amer) Est GFR (Non-Af Amer) POC Glucose (mg/dL) Random Glucose Lactic Acid 1.3 Calcium Phosphorus Magnesium Total Bilirubin AST ALT Alkaline Phosphatase Total Creatine Kinase CK-MB (Mass) Troponin I Total Protein Albumin Globulin Albumin/Globulin Ratio Arterial Blood Potassium Urine Color [place] Urine Clarity Clear Urine pH 5.0 Ur Specific [place] 1.038 H Urine Protein Negative Urine Glucose (UA) 3+ H Urine Ketones Trace Urine Blood 1+ H Urine Nitrate Negative Urine Bilirubin Negative Urine Urobilinogen 2.0 H Ur Leukocyte Esterase Neg Urine WBC (Auto) 2 Urine RBC (Auto) 4 H Ur Squamous Epith Cells < 1 Urine Opiates Screen Urine Methadone Screen Ur Barbiturates Screen Ur Phencyclidine Scrn Ur Amphetamines Screen U Benzodiazepines Scrn U Oth Cocaine Metabols U Cannabinoids Screen Blood Type Antibody Screen 09/19/18 09/19/18 09/19/18 18:35 18:37 19:55 WBC 10.8 RBC 2.92 L Hgb 8.9 L Hct 25.6 L MCV 87.9 MCH 30.3 MCHC 34.5 RDW 15.5 H Plt Count 150 MPV 7.8 Neut % (Auto) 68.1 Lymph % (Auto) 20.1 [place] % (Auto) 11.5 H Eos % (Auto) 0.0 Baso % (Auto) 0.3 Neut # (Auto) 7.3 H Lymph # (Auto) 2.2 [place] # (Auto) 1.2 H Eos # (Auto) 0.0 Baso # (Auto) 0.0 PT INR APTT Puncture Site pCO2 pO2 HCO3 ABG pH ABG Total CO2 ABG O2 Saturation ABG Base Excess Tavo Test ABG Potassium A-a O2 Difference Respiratory Index Glucose Lactate Vent Mode Mechanical Rate FiO2 PEEP Sodium 136 Potassium 3.5 L Chloride 107 Carbon Dioxide 25 Anion Gap 7 L BUN 3 L Creatinine 0.6 L Est GFR ( Amer) > 60 Est GFR (Non-Af Amer) > 60 POC Glucose (mg/dL) 171 H Random Glucose 175 H Lactic Acid Calcium 7.0 L Phosphorus 1.7 L Magnesium 1.7 Total Bilirubin 1.3 AST 85 H ALT 46 Alkaline Phosphatase 34 L Total Creatine Kinase CK-MB (Mass) 24.5 H Troponin I Total Protein 3.9 L Albumin 2.1 L Globulin 1.9 L Albumin/Globulin Ratio 1.1 Arterial Blood Potassium Urine Color Urine Clarity Urine pH Ur Specific [place] Urine Protein Urine Glucose (UA) Urine Ketones Urine Blood Urine Nitrate Urine Bilirubin Urine Urobilinogen Ur Leukocyte Esterase Urine WBC (Auto) Urine RBC (Auto) Ur Squamous Epith Cells Urine Opiates Screen Urine Methadone Screen Ur Barbiturates Screen Ur Phencyclidine Scrn Ur Amphetamines Screen U Benzodiazepines Scrn U Oth Cocaine Metabols U Cannabinoids Screen Blood Type Antibody Screen 09/20/18 09/20/18 09/20/18 00:07 01:43 EST 02:59 WBC RBC Hgb Hct MCV MCH MCHC RDW Plt Count MPV Neut % (Auto) Lymph % (Auto) [place] % (Auto) Eos % (Auto) Baso % (Auto) Neut # (Auto) Lymph # (Auto) [place] # (Auto) Eos # (Auto) Baso # (Auto) PT INR APTT 130 H* D Puncture Site pCO2 pO2 HCO3 ABG pH ABG Total CO2 ABG O2 Saturation ABG Base Excess Tavo Test ABG Potassium A-a O2 Difference Respiratory Index Glucose Lactate Vent Mode Mechanical Rate FiO2 PEEP Sodium Potassium Chloride Carbon Dioxide Anion Gap BUN Creatinine Est GFR ( Amer) Est GFR (Non-Af Amer) POC Glucose (mg/dL) 128 H Random Glucose Lactic Acid Calcium Phosphorus Magnesium Total Bilirubin AST ALT Alkaline Phosphatase Total Creatine Kinase 5736 H CK-MB (Mass) 18.3 H Troponin I < 0.0120 Total Protein Albumin Globulin Albumin/Globulin Ratio Arterial Blood Potassium Urine Color Urine Clarity Urine pH Ur Specific [place] Urine Protein Urine Glucose (UA) Urine Ketones Urine Blood Urine Nitrate Urine Bilirubin Urine Urobilinogen Ur Leukocyte Esterase Urine WBC (Auto) Urine RBC (Auto) Ur Squamous Epith Cells Urine Opiates Screen Urine Methadone Screen Ur Barbiturates Screen Ur Phencyclidine Scrn Ur Amphetamines Screen U Benzodiazepines Scrn U Oth Cocaine Metabols U Cannabinoids Screen Blood Type Antibody Screen 09/20/18 09/20/18 09/20/18 05:29 05:45 06:28 WBC RBC Hgb Hct MCV MCH MCHC RDW Plt Count MPV Neut % (Auto) Lymph % (Auto) [place] % (Auto) Eos % (Auto) Baso % (Auto) Neut # (Auto) Lymph # (Auto) [place] # (Auto) Eos # (Auto) Baso # (Auto) PT INR APTT Puncture Site Rb pCO2 50 H pO2 86 HCO3 29.4 H ABG pH 7.41 ABG Total CO2 33.2 H ABG O2 Saturation 98.8 H ABG Base Excess 5.8 H Tavo Test Na ABG Potassium 3.0 L A-a O2 Difference 101.0 Respiratory Index 1.2 Glucose 159 H Lactate 1.2 Vent Mode A/c pc Mechanical Rate 20 FiO2 35.0 PEEP 5 Sodium 140.0 136 Potassium 3.2 L Chloride 108.0 H 104 Carbon Dioxide 29 Anion Gap 6 L BUN 3 L Creatinine 0.4 L Est GFR ( Amer) > 60 Est GFR (Non-Af Amer) > 60 POC Glucose (mg/dL) 162 H Random Glucose 151 H Lactic Acid Calcium 6.5 L Phosphorus 2.4 L Magnesium 1.7 Total Bilirubin 1.3 AST 109 H D ALT 52 Alkaline Phosphatase 41 Total Creatine Kinase CK-MB (Mass) Troponin I Total Protein 3.9 L Albumin 2.0 L Globulin 1.9 L Albumin/Globulin Ratio 1.0 Arterial Blood Potassium 3.0 L Urine Color Urine Clarity Urine pH Ur Specific [place] Urine Protein Urine Glucose (UA) Urine Ketones Urine Blood Urine Nitrate Urine Bilirubin Urine Urobilinogen Ur Leukocyte Esterase Urine WBC (Auto) Urine RBC (Auto) Ur Squamous Epith Cells Urine Opiates Screen Urine Methadone Screen Ur Barbiturates Screen Ur Phencyclidine Scrn Ur Amphetamines Screen U Benzodiazepines Scrn U Oth Cocaine Metabols U Cannabinoids Screen Blood Type Antibody Screen 09/20/18 09/20/18 09/20/18 06:28 09:56 09:56 WBC 9.6 RBC 2.71 L Hgb 8.5 L Hct 24.3 L MCV 89.7 MCH 31.6 H MCHC 35.2 RDW 16.0 H Plt Count 126 L D MPV 8.3 Neut % (Auto) 61.7 Lymph % (Auto) 26.5 [place] % (Auto) 11.2 H Eos % (Auto) 0.2 Baso % (Auto) 0.4 Neut # (Auto) 5.9 Lymph # (Auto) 2.6 [place] # (Auto) 1.1 H Eos # (Auto) 0.0 Baso # (Auto) 0.0 PT INR APTT 63 H D Puncture Site pCO2 pO2 HCO3 ABG pH ABG Total CO2 ABG O2 Saturation ABG Base Excess Tavo Test ABG Potassium A-a O2 Difference Respiratory Index Glucose Lactate Vent Mode Mechanical Rate FiO2 PEEP Sodium Potassium Chloride Carbon Dioxide Anion Gap BUN Creatinine Est GFR ( Amer) Est GFR (Non-Af Amer) POC Glucose (mg/dL) Random Glucose Lactic Acid Calcium Phosphorus Magnesium Total Bilirubin AST ALT Alkaline Phosphatase Total Creatine Kinase 7800 H CK-MB (Mass) 17.1 H Troponin I < 0.0120 Total Protein Albumin Globulin Albumin/Globulin Ratio Arterial Blood Potassium Urine Color Urine Clarity Urine pH Ur Specific [place] Urine Protein Urine Glucose (UA) Urine Ketones Urine Blood Urine Nitrate Urine Bilirubin Urine Urobilinogen Ur Leukocyte Esterase Urine WBC (Auto) Urine RBC (Auto) Ur Squamous Epith Cells Urine Opiates Screen Urine Methadone Screen Ur Barbiturates Screen Ur Phencyclidine Scrn Ur Amphetamines Screen U Benzodiazepines Scrn U Oth Cocaine Metabols U Cannabinoids Screen Blood Type Antibody Screen Fingerstick Blood Sugar Results: 151 Review of Systems - Review of Systems Systems not reviewed;Unavailable: Intubated Critical Care Progress Note - Nutrition Nutrition: Nutrition Category Date Time Status NPO Diet [DIET] Diets 09/19/18 Breakfast Active Assessment/Plan - Assessment and Plan (Free Text) Assessment: -Hypoxic respiratory failure: continue ventilation to keep spo2 >92 and pH b/w 7.35-7.45, continue bronchodilators, CPAP trials today -SVT:sinus tachy, continue pain control, contineu rx , verapamil PRN -PVD:with long history of smoking, will benefit from asa, statin and IV heparin, start milrinone, serial lactic, vascular check q1hrs -s/p fasciotomy/rhabdo: serial CK and continue IVF -sedation: versed/fentanyl (allergic to dilaudid) -dvt ppx IV heparin -PUD ppx protonix -BGm q4hrs, ISS aspart Patient remains critical -check and replace electrolytes Family at bedside aware of current clinical management, vascular/ortho spoke with family (daughter and ). -Vascular advised no other surgical intervention, patient at risk of loss of function of right lower leg. -CPAP today and extubate when awake. cc time 40 minutes - Date & Time Date: 09/20/18 Time: 11:12
--- NOTE | 2018-09-20 11:29 | CP.PCM.PN ---
Subjective - Date & Time of Evaluation Date of Evaluation: 09/20/18 Time of Evaluation: 11:20 - Subjective Subjective: Case reviewed. operative notes read. Discussed with CCM and Vascular. Objective - Vital Signs/Intake and Output Vital Signs (last 24 hours): Temp Pulse Resp BP Pulse Ox 99.8 F H 127 H 13 131/63 98 09/20/18 04:00 09/20/18 09:03 09/20/18 09:03 09/20/18 09:03 09/20/18 09:03 Intake and Output: 09/20/18 09/20/18 06:59 18:59 Intake Total 794.6 Output Total 195 Balance 599.6 - Medications Medications: Current Medications Acetaminophen (Tylenol 650 Mg Supp) 650 mg MO Q4 PRN PRN Reason: Fever >100.4 F Last Admin: 09/20/18 00:09 Dose: 650 mg Aspirin (Aspirin Chewable) 81 mg PO DAILY MOSES Last Admin: 09/20/18 09:01 Dose: 81 mg Heparin Sodium/Sodium Chloride (Heparin 51361 Units/250ml 1/2 Normal Saline) 25,000 units in 250 mls @ 12.247 mls/hr IV .[id number] PRN; Protocol PRN Reason: PROTOCOL Last Admin: 09/20/18 11:00 Dose: 17 units/kg/hr, 11.567 mls/hr Midazolam HCl 100 mg/ Sodium (Chloride) 100 mls @ 1.36 mls/hr IV .Q24H MOSES; Protocol Last Admin: 09/20/18 05:45 Dose: 0.07 mg/kg/hr, 5 mls/hr Fentanyl Citrate 2,500 mcg/ (Sodium Chloride) 250 mls @ 13.61 mls/hr IV .[id number] MOSES; Protocol Last Titration: 09/20/18 08:00 Dose: 4.4 mcg/kg/hr, 30 mls/hr Milrinone Lactate/Dextrose 20 (mg/ Dextrose) 100 mls @ 4.08 mls/hr IV .Q24H MOSES Last Admin: 09/20/18 01:00 EDT Dose: 4.08 mls/hr Potassium Phosphate 30 mmole/ (Sodium Chloride) 260 mls @ 42.5 mls/hr IVPB ONCE ONE Stop: 09/20/18 14:07 Last Admin: 09/20/18 08:15 Dose: 42.5 mls/hr Sodium Chloride (Sodium Chloride 0.9%) 1,000 mls @ 75 mls/hr IV .[id number] ONE Stop: 09/20/18 21:33 Last Admin: 09/20/18 09:00 Dose: 75 mls/hr Insulin Aspart (Novolog) 0 unit SC Q4H MOSES; Protocol Last Admin: 09/20/18 08:55 Dose: 1 unit Pantoprazole Sodium (Protonix Inj) 40 mg IVP Q12H MOSES Rosuvastatin Calcium (Crestor) 10 mg PO HS MOSES Last Admin: 09/19/18 21:21 Dose: 10 mg Verapamil HCl (Verapamil Inj) 2.5 mg IVP Q4H PRN PRN Reason: Heart rate Last Admin: 09/20/18 09:54 Dose: 2.5 mg - Labs Labs: 09/20/18 06:28 09/20/18 06:28 PT 14.7 SECONDS (9.7-12.2) H 09/19/18 18:35 INR 1.3 09/19/18 18:35 APTT 63 SECONDS (21-34) H D 09/20/18 09:56 Assessment and Plan - Assessment and Plan (Free Text) Assessment: 42 year old female with critical limb ischemia due to possible s/p complex knee procedures over many hours there was complete occlusion of the left popliteal artery which was discovered post op she is now s/p emergent bypass of this occulsion. Overnight the limb became pulseless and has severe ischemic injury to the leg. There is also a concomitant deep vein thrombosis of the popliteal vein. Critical medicine called cardiology for evaluation of tachycardia. Obtain 12 lead EKG for more definitive diagnosis but extensive review of telemetry suggests a sinus mechanism - given her critical illness and high probablity of amputation pain, sepsis and volume depletion would be highest on my differential. 2D echo should also to be obtained to look at RV function and pericardium but those are much less likely to be occurring at the time of my exam. Aggressive pain management maintaining euvolemia Respiratory failure with history of COPD - tolerating CPAP Pain management given the severity of this condition I would be judicious with use of pain management and consider anesthesia assistence for a regional nerve block if opioids are not helpful. Anticoagulate Primacor can also cause tachycardia, ultimately controlling heart rate is not a necessary metric for patients improvement as the surrounding constellation of illnesses resolve the HR will normalize.
[2018-09-20] MEDS ORDERED: HYDROmorphone 1 mg/ml ISec IVP STA ×2 (11:51→14:35)
[2018-09-20] MEDS ORDERED: HYDROmorphone 1 mg/ml ISec IVP PRN (11:53)
[2018-09-20 14:39] VITALS: TEMP 100
[2018-09-20 16:34] VITALS: BP 131/73; PULSE 129; RESP 15; O2SAT 97
--- NOTE | 2018-09-22 03:41 | CP.PCM.PN ---
Subjective - Date & Time of Evaluation Date of Evaluation: 09/18/18 Time of Evaluation: 21:30 - Subjective Subjective: Account of events postoperative: The following is an account of the postoperative events for this patient to the best of my knowledge: Friday09/18/18: During this surgery, posterior tibial artery was pulse was palpated by myself and my clerical dentist assistant. The foot and ankle were covered in sterile stockinette and coban as good practice to maintain best sterile technique during knee surgery. At the end of surgery, the foot was cool and covered in arthroscopic fluid that leaked into stockinette but there was good cap refill. 9:30 PM: Patient brought to PACU, initially tolerated procedure well and was medically stable. Patient was just awakening from anesthesia, difficult to follow commands and complained of pain. Right foot felt cool to touch with brisk cap refill, initially felt to be a result of exposure to arthroscopic fluid from extended amount of surgical time needed for this type of surgery, leaking into the stockinette creating a cool temperature. Right foot initial exam: Cold to touch compared to contralateral foot, patient exhibited difficulty moving toes, she denied sensation to toes but felt decreased sensation along sole of foot with associated tingling. Brisk cap refill all toes. Dorsalis pedis and posterior tibial pulse could not be palpated. At that point the thought was possible vasospasm. Pulse ox monitor placed on great toe read 99%. Doppler ultrasound machine was used to evaluate for pulses. Dorsalis pedis was absent. Posterior tibial pulse was present. Bear hugger warmer was applied. 10 PM: Reevaluation confirmed that despite warming, dorsalis pedis pulse was not present and posterior tibial pulse came and went. I spoke with anesthesiologist, Dr. Rodriguez, we both agreed that a STAT CT angiogram should be ordered. Vascular findings confirmed by medical / hospitalist team as well. 10:20 PM: Patient taken for CT angiogram. 10:23 PM: I personally spoke with Dr. Servin who was en route to [facility]. I explained to him the nature of the surgery performed and confirmed for him to intraoperative x-rays confirmed that all hardware was contained within the tibia and that all surgery was done through an anterior and lateral aspect of the knee. I relayed the current physical exam findings and the likelihood of disruption of arterial supply to the foot. 10:40 PM: I reviewed CT angiogram and it was clear that there was an abrupt cutoff at the level of the popliteal artery arterial flow at the level of the knee. 10:55 PM: I was made aware that Dr. Servin was in PACU discussing plan with family. I personally spoke with Dr. Servin and he informed me that his opinion was that there was popliteal clot that needed thrombectomy and treatment. 11:05 PM: I spoke with patients at length and assured him that this was the procedure the patient needed to undergo at this point in time. Lack of vascular surgery intervention could potentially result in dire consequences for the right lower extremity. 11:26 PM: I spoke with Dr. Servin again, they were in the process of going to the OR. He confirmed my assistance was not needed. At this point time I felt that it was best to allow the vascular surgeon to perform his surgical specialty and expertise without my potential interference. Friday09/19/18: 1AM 8 AM: I communicated with the anesthesiologist in the operating room on multiple occasions throughout the night receiving updates about the situation and progress during surgery. I was also checking for any need for my assistance which was confirmed not to be needed. 3AM: Dr. Servin spoke with me during surgery and advised me that he could not successfully perform a thrombectomy of the popliteal artery. His plan was to proceed with a bypass. 8 AM: Spoke with Dr. Servin, popliteal artery to posterior tibial artery bypass was successfully carried out. Good pulses distally. Patient was transferred to ICU in stable condition. 2:44 PM: Spoke with Dr. Servin and ICU staff, confirmed that posterior tibial pulse was lost. Dr. Servin recommended close observation and continuing anticoagulation treatment, supportive care, advised that he did not recommend any further surgery. 3 PM: Spoke with patients and went over her current presentation of patient, we agreed to follow Dr. Whitlock recommendations. 7 PM: Spoke with Dr. Servin and ICU staff, confirmed that there was no change in presentation at the posterior tibial artery pulse was still not to detectable. Dr. Servin did not believe that return trip to the OR with help the patient. I deferred to his judgment as the vascular surgeon on the case. 9PM: Met with family members again. Provided support as much as possible. Friday09/20/18: 8:30 AM: Met with Dr. Servin bedside with the patient in ICU. We both examined the patient who was still intubated, in the presence of family, he showed me where the bypass was. We used the Doppler ultrasound to search for any signal in the graft or distal to the graft, no signal was found. I had a long conversation with Dr. Servin, he felt that nothing else could be done. I attempted to obtain an in- house second opinion. I contacted the concrete pipe machine operator who connected me to the only other known vascular surgeon on staff. He was not available. I began contacting other facilities for higher level of care. I contacted [place] vascular surgeon convention planner who refused to accept case, I was awaiting responses from [facility] and [facility] vascular surgery convention planner. Through an acquaintance of [facility], Dr. John Yu who is a vascular surgeon at [place], I was able to reach the director of vascular surgery at [facility], Dr. Hugh Nails (Dr. Hinton partner) who accepted the case. We discussed potential treatment options which included revision bypass which he felt strongly about, he felt that the patient should be transferred as soon as possible. I discussed transfer and other treatment options with the family. 10:30 AM: At this point time the patient was extubated, as it was decided that there was no further vascular surgical intervention going to occur at [facility]. By then the transfer had already been initiated as time was of the essence. 11AM: I personally returned to the ICU again to speak with the patient [id number]. I discussed the postoperative sequence of events and current presentation/diagnosis with the patient and explained to her treatment options. She accepted the transfer and was transferred to [facility] ICU at approximately 2:00 PM under the care of Dr. Nails 3:22 PM: I confirmed with Dr. Hugh Nails note that the patient had been successfully transferred to [facility] ICU. They were planning for surgery as soon as possible. 10 PM: I spoke with Dr. Hugh Nails confirmed that a successful revision bypass was performed with good pulses distally. Friday18: 3 AM: I spoke with ICU staff at [place] as well as family members of the patient, it was confirmed that pulses were lost again. Dr. Nails took the patient back to the OR and revised the bypass again. Good pulses were achieved. 7 AM: Patient was recovering in ICU at [facility]. Throughout the day had multiple discussions with family members and ICU staff at [facility] confirming that the pulses were maintained and that the foot had good perfusion. 6 PM: I personally went to visit the patient and her family at [facility]. Patient had just been extubated. I spoke with Dr. Nails who again confirmed that the pulses were present and that the bypass so far was successful. At this point in time we will wait and see how the right foot recovers. I am optimistic and hopeful from what Nieves seen so far from her progress. I plan to visit the pt at [facility] during the patient's admission as much as possible and will stay in close communication with family and vascular surgeon. Christopher Cintron MD Orthopedic Surgery [phone] Objective - Vital Signs/Intake and Output Vital Signs (last 24 hours): Temp Pulse Resp BP Pulse Ox 100.0 F H 129 H 15 131/73 97 09/20/18 12:00 09/20/18 15:03 09/20/18 15:03 09/20/18 15:03 09/20/18 15:03 - Labs Labs: 09/20/18 06:28 09/20/18 06:28 PT 14.7 SECONDS (9.7-12.2) H 09/19/18 18:35 INR 1.3 09/19/18 18:35 APTT 58 SECONDS (21-34) H D 09/20/18 14:12
--- NOTE | 2018-09-22 04:36 | CP.PCM.PN ---
Subjective - Date & Time of Evaluation Date of Evaluation: 09/20/18 Time of Evaluation: 08:30 - Subjective Subjective: Pt intubated/sedated. Family bedside. Pt seen with Dr. Virginia Servin bedside. Doppler Ultrasound used to asses RLE bypass status. No detectable flow at graft or distal to graft via doppler ultrasound by Dr. Servin and myself. R foot still appeared viable but cool to touch. Objective - Vital Signs/Intake and Output Vital Signs (last 24 hours): Temp Pulse Resp BP Pulse Ox 100.0 F H 129 H 15 131/73 97 09/20/18 12:00 09/20/18 15:03 09/20/18 15:03 09/20/18 15:03 09/20/18 15:03 - Labs Labs: 09/20/18 06:28 09/20/18 06:28 PT 14.7 SECONDS (9.7-12.2) H 09/19/18 18:35 INR 1.3 09/19/18 18:35 APTT 58 SECONDS (21-34) H D 09/20/18 14:12 Assessment and Plan - Assessment and Plan (Free Text) Assessment: 42 yo Female w/ R knee pain at lateral compartment with instability. 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 s/p RLE popliteal to posterior tibial artery bypass by Dr. Servin late in evening 09/18/18 to early childhood assistant 09/19/18 bypass failed PLAN: RLE: KNEE: -knee surgical site, keep dressing clean/dry/intact, keep in knee immobilizer for now -when cleared by vascular surgery, can start range of motion of R knee, to protect surgery, WBAT with knee immobilzer on only. VASCULAR: -met with Dr. Servin and evaluated pt bedside today together, no posterior tibial or bypass pulse detected even with doppler. -right foot still appeared viable and I discussed treatment options with family members, we decided to seek 2nd opinion versus transfer. -I reached out to local institutions including [facility] and [facility] -after a very long discussion with family, I initiated transfer to higher level of care at [facility] to be evaluated and treated by the Director of Vascular Surgery, Dr. Hugh Lindo, whom I communicated personally with and after presenting the case to him, he accepted the pt for transfer. -once pt was successfully extubated, I returned to ICU and spoke with pt face to face to explain the situation and post-operative course/events, then reviewed current condition and treatment options including transfer to [facility] she agreed and transfer completed. -I followed up with Dr. Nails who confirmed that he was taking her to the OR for revision bypass. -I stayed in close communication with surgeon and family, after repeat revision bypass for 2nd time under Dr. Nails's care, pulses returned and were stron g, right foot was warm again. -at this point, there has been extended ischemia time but Dr. Nails was hopeful. -I plan to visit the pt at [facility] during the patient's admission as much as possible and will stay in close communication with family. please refer to my summary of post-operative event timeline for further details. Christopher Cintron MD Orthopedic Surgery [phone]
--- NOTE | 2018-09-22 04:54 | CP.PCM.PN ---
Subjective - Date & Time of Evaluation Date of Evaluation: 09/19/18 Time of Evaluation: 14:00 - Subjective Subjective: Pt intubated/sedated. Family bedside. RLE pulses not detectable via doppler. Objective - Vital Signs/Intake and Output Vital Signs (last 24 hours): Temp Pulse Resp BP Pulse Ox 100.0 F H 129 H 15 131/73 97 09/20/18 12:00 09/20/18 15:03 09/20/18 15:03 09/20/18 15:03 09/20/18 15:03 - Labs Labs: 09/20/18 06:28 09/20/18 06:28 PT 14.7 SECONDS (9.7-12.2) H 09/19/18 18:35 INR 1.3 09/19/18 18:35 APTT 58 SECONDS (21-34) H D 09/20/18 14:12 Assessment and Plan - Assessment and Plan (Free Text) Assessment: 42 yo Female w/ R knee pain at lateral compartment with instability. 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 s/p RLE popliteal to posterior tibial artery bypass by Dr. Servin late in evening 09/18/18 to bioinformatics associate 09/19/18 bypass failing currently PLAN: RLE: -knee surgical site, keep dressing clean/dry/intact, keep in knee immobilizer for now -when cleared by vascular surgery, can start range of motion of R knee, to protect surgery, WBAT with knee immobilzer on only. VASCULAR: -bypass performed by Dr. Servin was initially successful, since this afternoon, no pulses detectable -spoke with Dr. Servin, recommended supportive care, anti-coagulation and close observation, he did feel that a repeat visit to OR for potential revision bypass would be beneficial or have good outcome -spoke with family, agreed to observe for now -I deferred to Dr. Servin's expertise -planned to meet with Dr. Servin in AM to evaluate pt together and discuss f urther -all medical and vascular care per ICU and Vascular team. Christopher Cintron MD Orthopedic Surgery [phone]
--- NOTE | 2018-09-22 22:03 | OP ---
PROCEDURE DATE: 09/18/2018 PREOPERATIVE DIAGNOSES: Right knee: 1. Lateral meniscus deficiency. 2. Lateral femoral condyle cartilage loss. 3. Anterior cruciate ligament tear/instability. 4. Medial meniscal tear. 5. Status post right knee arthroscopic medial meniscal repair, partial lateral meniscectomy, chondroplasty and microfracture of lateral femoral condyle on 10/08/2017. POSTOPERATIVE DIAGNOSES: Right knee: 1. Lateral meniscus deficiency. 2. Lateral femoral condyle cartilage loss (weightbearing zone grade IV chondral loss measuring 22 mm x 10 mm). 3. Anterior cruciate ligament high-grade partial tear with grade III instability (high-grade partial tear with mucinoid changes, examination under anesthesia = grade III instability). 4. New acute medial meniscal tear (red-white zone horizontal tear, repairable). 5. Three-compartment synovitis. 6. Medial and lateral plica band/adhesions. 7. Status post right knee arthroscopic medial meniscal repair, partial lateral meniscectomy, chondroplasty and microfracture of lateral femoral condyle on 10/08/2017. PROCEDURES: Right knee: 1. Arthroscopic all-inside medial meniscal repair. 2. Arthroscopic extensive synovectomy (three-compartment synovectomy/resection plica/lysis of adhesions). 3. Arthroscopic-assisted lateral meniscus allograft transplantation. 4. Arthroscopic-assisted anterior cruciate ligament reconstruction with allograft hamstring. 5. Open osteochondral allograft transplantation of lateral femoral condyle (biological resurfacing). 6. Bone grafting to lateral meniscus transplant and lateral femoral condyle osteochondral allograft base. 7. Arthroscopic intraarticular platelet-rich plasma injection. SURGEON: Christopher Cintron MD SKIDDER LEVER OPERATOR: Saji Denton PA-C SECOND RIB CHOPPER: (third-year medical administrative assistant). JUSTIFICATION FOR RIB CHOPPER: Saji Denton is a certified physician janitorial assistant whose skilled surgical assistance was an absolute necessity for successful completion of the procedure as he provided skilled surgical assistance with positioning of the patient, positioning of extremity, management of surgical field, retraction of neurovascular structures, surgical approach to lateral femoral condyle and lateral tibial plateau, protection of neurovascular structures, preparation of proximal tibia for dovetail technique for fixation and transplant of lateral meniscus, preparation of lateral femoral condyle for [employer] osteochondral allograft transplantation, preparation of femoral tunnel and tibial tunnel for ACL reconstruction as well as a femoral-sided fixation and tibial-sided fixation for ACL reconstruction. Cnc Machine Programmer also prepared the ACL graft, wound closure, fitting and placement of postop hinged knee brace, management of arthroscopic procedures including all-inside meniscus repair and fixation of lateral meniscus transplant, wound closure, fitting and placement of postop hinged knee brace. Saji Denton was present for the entire case, who was an absolute necessity for successful completion of the procedure. ANESTHESIA: General endotracheal anesthesia. SPECIMENS: None. COMPLICATIONS: None. TOURNIQUET TIME: 120 minutes at 300 mmHg, then deflated for approximately 60 minutes and re-inflated for 100 minutes at 300 mmHg. IMPLANTS: [employer] TightRope button and teletypesetter monitor with suture for femoral-sided fixation of ACL graft, 11 mm x 20 mm length [employer] delta screw for tibial-sided fixation of the ACL graft, 10 mm x 20 mm length [employer] interference screw as stabilization backup for lateral meniscus allograft transplantation dovetail technique fixation, semitendinosus allograft x2 for ACL reconstruction, right knee lateral condyle fresh allograft for osteochondral allograft transplantation of lateral femoral condyle, right knee lateral meniscus frozen allograft for lateral meniscus transplant. [employer], [employer] Sequent meniscal repair all-inside system 10 implants for medial meniscal repair, 19 implants for lateral meniscus allograft fixation. Inside-out zone specific needles, 10 implants used for lateral meniscus transplant fixation. ESTIMATED BLOOD LOSS: 100 mL. DRAINS: None. DISPOSITION: The patient was extubated and transferred to the PACU in stable condition having tolerated the procedure well. INDICATIONS FOR SURGERY: The patient is a 42-year-old female with past medical history significant for smoking. (We will continue details). PROCEDURE IN DETAIL: The patient was identified in the preoperative holding area and the right knee was marked for surgery. The risks, benefits and alternatives of procedure were discussed at length with the patient as described above and informed consent was obtained. After a brief discussion with the anesthesia staff, the patient was taken to the operating room and placed in a well-padded operating room table with all bony prominences, superficial and neurovascular structures well padded. (We will continue with details shortly). DISPOSITION: The patient was extubated and transferred to PACU in stable condition (we will continue details shortly). Christopher Cintron MD [facility] # [id number]
== END 2018-09-20 15:00 | disposition short-term general hospital (02) | DRG 939 ==
LOC: C.9S 09-18 06:26 → UNDOADMIN 09-18 06:26 → C.9S 09-18 21:34 → C.6T 09-18 21:59 → C.9S 09-18 21:59 → C.6T 09-19 05:28 → C.9I 09-19 05:28 → UNDODISIN 09-20 15:00
PROVIDERS: ADMIT Student in an Organized Health Care Education/Training Program; ATTEND Student in an Organized Health Care Education/Training Program
PROC: 0SBC4ZZ Excision of Right Knee Joint, Percutaneous Endoscopic Approach (ICD-10-PCS; 2018-09-18)
PROC: 0MRN4KZ Replacement of Right Knee Bursa and Ligament with Nonautologous Tissue Substitute, Percutaneous Endoscopic Approach (ICD-10-PCS; 2018-09-18)
PROC: 0SBC4ZZ Excision of Right Knee Joint, Percutaneous Endoscopic Approach (ICD-10-PCS; principal; 2018-09-18 07:30)
PROC: 04CK3ZZ Extirpation of Matter from Right Femoral Artery, Percutaneous Approach (ICD-10-PCS; 2018-09-19)
PROC: 06BQ3ZZ Excision of Left Saphenous Vein, Percutaneous Approach (ICD-10-PCS; 2018-09-19)
PROC: 04WY07Z Revision of Autologous Tissue Substitute in Lower Artery, Open Approach (ICD-10-PCS; 2018-09-19)
PROC: 0BH18EZ Insertion of Endotracheal Airway into Trachea, Via Natural or Artificial Opening Endoscopic (ICD-10-PCS; 2018-09-19)
PROC: 5A1945Z Respiratory Ventilation, 24-96 Consecutive Hours (ICD-10-PCS; 2018-09-19)
DX: S83.271D Complex tear of lateral meniscus, current injury, right knee, subsequent encounter (principal); J96.91 Respiratory failure, unspecified with hypoxia; I47.1 Supraventricular tachycardia; I82.431 Acute embolism and thrombosis of right popliteal vein; S83.231D Complex tear of medial meniscus, current injury, right knee, subsequent encounter; M94.261 Chondromalacia, right knee; M67.861 Other specified disorders of synovium, right knee; S83.511D Sprain of anterior cruciate ligament of right knee, subsequent encounter; F17.210 Nicotine dependence, cigarettes, uncomplicated; I70.202 Unspecified atherosclerosis of native arteries of extremities, left leg; M65.9 Synovitis and tenosynovitis, unspecified; S83.519A Sprain of anterior cruciate ligament of unspecified knee, initial encounter; S83.241A Other tear of medial meniscus, current injury, right knee, initial encounter; X58.XXXA Exposure to other specified factors, initial encounter